=== PATIENT | female | born 1935 | race Caucasian/White ===

== ENCOUNTER 2017-05-11 19:09 | Inpatient (IN) | payer MEDICARE ==
[~2017-05-11] VITALS: Ht 157.5 cm; Wt 57.8 kg
[2017-05-11 20:02] LABS: BASO # 0.1 x10^3/uL (0.0-0.2); BASO % 1 % (0-3); EOS # 0.2 x10^3/uL (0.0-0.7); EOS % 3 % (0-3); HEMATOCRIT 30.7 % (36.0-47.0); HEMOGLOBIN 9.7 g/dL (12.0-15.5); LYMPH # 1.9 x10^3/uL (1.0-4.8); LYMPH % 21 % (24-48); MEAN CORPUSCULAR HEMOGLOBIN 22 pg (25-35); MEAN CORPUSCULAR HGB CONC 32 g/dL (31-37); MEAN CORPUSCULAR VOLUME 70 fL (79-100); MONO % 11 % (0-9); NEUT # 5.6 x10^3uL (1.8-7.7); NEUT % 63 % (31-73); PLATELET COUNT 556 x10^3/uL (140-400); RED BLOOD COUNT 4.36 x10^6/uL (3.50-5.40); RED CELL DISTRIBUTION WIDTH 17.9 % (11.5-14.5); WHITE BLOOD COUNT 8.8 x10^3/uL (4.0-11.0)
[2017-05-11 20:09] LABS: BILIRUBIN,URINE NEG (NEG); CLARITY,URINE CLEAR; COLOR,URINE YELLOW; GLUCOSE,URINE NEG (NEG)
[2017-05-11 20:10] LABS: BACTERIA,URINE 0 /HPF (0-FEW); NITRITE,URINE NEG (NEG); RBC,URINE 0 /HPF (0-2); UROBILINOGEN,URINE 0.2 mg/dL (0.2 mg/dL)
[2017-05-11 20:16] LABS: ALBUMIN 3.2 g/dL (3.4-5.0); ALBUMIN/GLOBULIN RATIO 0.8 (1.0-1.7); CREATININE 0.6 mg/dL (0.6-1.0); GFR 96.2; MAGNESIUM 1.9 mg/dL (1.8-2.4); POTASSIUM 3.7 mmol/L (3.5-5.1); TOTAL BILIRUBIN 0.3 mg/dL (0.2-1.0)
[2017-05-11 20:33] LABS: ANISOCYTOSIS SLIGHT; HYPOCHROMIA MOD; MICROCYTOSIS MOD; OVALOCYTES PRESENT; PLT ESTIMATE INCREASED (ADEQUATE); POLYCHROMASIA PRESENT
--- NOTE | 2017-05-11 20:33 | EKG ---
[address] [address] Test Date: 2017-05-11 Test Time: 19:45:30 Pat Name: LUIS MANUEL PICKENS Department: Room: Gender: F Inside Sales Advisor: : [id number] Requested By: TERRY HOLLIDAY Order Number: [id number] Reading MD: Troy Latham Measurements Intervals Meredith Rate: 92 P: 0 CA: 164 QRS: -72 QRSD: 80 T: 35 QT: 332 QTc: 415 Interpretive Statements SINUS RHYTHM ABNORMAL LEFT AXIS DEVIATION R-S TRANSITION ZONE IN V LEADS DISPLACED TO THE LEFT Electronically Signed On 06-07-2017 16:33:27 CDT by Troy Latham
[2017-05-11 20:34] LABS: SCHISTOCYTES OCC
[2017-05-11] MEDS ORDERED: METHYL SALICYLATE/MENTHOL TOPICAL OINTMENT 29GM TUBE. TP PRN (22:30)
[2017-05-11] MEDS ORDERED: MAG HYDROX/AL HYDROX/SIMETH 30 ML ORAL.SUSP PO PRN (22:30)
[2017-05-11] MEDS ORDERED: MAGNESIUM HYDROXIDE 2,400 MG/30 ML ORAL.SUSP. PO PRN (22:30)
[2017-05-11] MEDS ORDERED: LEVO50TA5 PO (22:43)
[2017-05-11] MEDS ORDERED: DOCU100C28 PO (22:43)
[2017-05-11] MEDS ORDERED: MULT-114 PO (22:43)
[2017-05-11] MEDS ORDERED: SERT50TA PO (22:43)
[2017-05-11] MEDS ORDERED: RISP1TAB3 PO (22:43)
[2017-05-11] MEDS ORDERED: LEVO75TA5 PO (22:43)
[2017-05-11 23:11] VITALS: BP 132/81
--- NOTE | 2017-05-11 23:45 | ED.ADGEN ---
Adult General HPI HPI Patient is an 82-year-old woman, history of colostomy, hypertension, dementia, who presents to the emergency department for medical screening examination for clearance to the geriatric psychiatric unit. Per report of nursing facility, patient has been exhibiting self harming type behaviors, "twisting her gown around her neck", and has been combative. At this time she is at her baseline mental status per report. Is unable to state where she is, but knows her name, and is cooperative with examination. She is denying all complaints, states that she is hungry. Review of Systems Review of Systems Constitutional: Denies fever or chills [] Eyes: Denies change in visual acuity, redness, or eye pain [] HENT: Denies nasal congestion or sore throat [] Respiratory: Denies cough or shortness of breath [] Cardiovascular: No additional information not addressed in HPI [] GI: Denies abdominal pain, nausea, vomiting, bloody stools or diarrhea [] : Denies dysuria or hematuria [] Musculoskeletal: Denies back pain or joint pain [] Integument: Denies rash or skin lesions [] Neurologic: Denies headache, focal weakness or sensory changes [] Endocrine: Denies polyuria or polydipsia [] Patient is denying all complaints, limited historian secondary to dementia at baseline. Physical Exam Physical Exam Constitutional: Well developed, well nourished, no acute distress, non-toxic appearance. [] HENT: Normocephalic, atraumatic, bilateral external ears normal, oropharynx moist, no oral exudates, nose normal. [] Eyes: PERRLA, EOMI, conjunctiva normal, no discharge. [] Neck: Normal range of motion, no tenderness, supple, no stridor. [] Cardiovascular:Heart rate regular rhythm, no murmur , S1, S2, no rubs or gallops. [] Lungs & Thorax: Bilateral breath sounds clear to auscultation, no wheezing, rhonchi, rales. No chest wall crepitus or tenderness. [] Abdomen: Bowel sounds normal, soft, no tenderness, patient with a colostomy in place in the left lower abdomen, with brown stool in colostomy bag, no masses, no pulsatile masses. [] Skin: Warm, dry, no erythema, no rash. [] Back: No tenderness, no CVA tenderness. [] Extremities: No tenderness, no cyanosis, no clubbing, ROM intact, no edema. [] Neurologic: Alert and oriented X 1, normal motor function, normal sensory function, no focal deficits noted. [] Psychologic: Affect normal, judgement normal, mood normal. [] Current Patient Data Lab Results Laboratory Tests Test 05/11/17 19:40 White Blood Count 8.8 x10^3/uL (4.0-11.0) Red Blood Count 4.36 x10^6/uL (3.50-5.40) Hemoglobin 9.7 g/dL (12.0-15.5) L Hematocrit 30.7 % (36.0-47.0) L Mean Corpuscular Volume 70 fL (79-100) L Mean Corpuscular Hemoglobin 22 pg (25-35) L Mean Corpuscular Hemoglobin Concent 32 g/dL (31-37) Red Cell Distribution Width 17.9 % (11.5-14.5) H Platelet Count 556 x10^3/uL (140-400) H Neutrophils (%) (Auto) 63 % (31-73) Lymphocytes (%) (Auto) 21 % (24-48) L Monocytes (%) (Auto) 11 % (0-9) H Eosinophils (%) (Auto) 3 % (0-3) Basophils (%) (Auto) 1 % (0-3) Neutrophils # (Auto) 5.6 x10^3uL (1.8-7.7) Lymphocytes # (Auto) 1.9 x10^3/uL (1.0-4.8) Monocytes # (Auto) 1.0 x10^3/uL (0.0-1.1) Eosinophils # (Auto) 0.2 x10^3/uL (0.0-0.7) Basophils # (Auto) 0.1 x10^3/uL (0.0-0.2) Platelet Estimate Increased (ADEQUATE) Polychromasia Present Hypochromasia Mod Anisocytosis Slight Microcytosis Mod Ovalocytes Present Crenated Cell Present Schistocytes Occ Urine Collection Type U cath Urine Color Yellow Urine Clarity Clear Urine pH 6.0 Urine Specific [place] 1.020 Urine Protein Trace (NEG-TRACE) Urine Glucose (UA) Neg mg/dL (NEG) Urine Ketones (Stick) Neg mg/dL (NEG) Urine Blood Trace (NEG) Urine Nitrite Neg (NEG) Urine Bilirubin Neg (NEG) Urine Urobilinogen Dipstick 0.2 mg/dL (0.2 mg/dL) Urine Leukocyte Esterase Small (NEG) Urine RBC 0 /HPF (0-2) Urine WBC 11-20 /HPF (0-4) Urine Squamous Epithelial Cells None /LPF Urine Bacteria 0 /HPF (0-FEW) Urine Mucus Mod /LPF Sodium Level 137 mmol/L (136-145) Potassium Level 3.7 mmol/L (3.5-5.1) Chloride Level 100 mmol/L (98-107) Carbon Dioxide Level 29 mmol/L (21-32) Anion Gap 8 (6-14) Blood Urea Nitrogen 10 mg/dL (7-20) Creatinine 0.6 mg/dL (0.6-1.0) Estimated GFR (Cockcroft-Gault) 96.2 BUN/Creatinine Ratio 17 (6-20) Glucose Level 110 mg/dL (70-99) H Calcium Level 9.0 mg/dL (8.5-10.1) Magnesium Level 1.9 mg/dL (1.8-2.4) Total Bilirubin 0.3 mg/dL (0.2-1.0) Aspartate Amino Transferase (AST) 14 U/L (15-37) L Alanine Aminotransferase (ALT) 18 U/L (14-59) Alkaline Phosphatase 70 U/L (46-116) Total Protein 7.0 g/dL (6.4-8.2) Albumin 3.2 g/dL (3.4-5.0) L Albumin/Globulin Ratio 0.8 (1.0-1.7) L EKG EKG EC: Sinus rhythm, heart rate 92 beats minute, left axis deviation, QTC of 4:15, NV 164, QRS of 80, contour normality is noted in the inferior leads, no ST elevations or depressions, abnormal ECG, does not meet STEMI criteria. As interpreted by me. [] Radiology/Procedures Radiology/Procedures [] Course & Med Decision Making Course & Med Decision Making Pertinent Labs and Imaging studies reviewed. (See chart for details) Patient on one-to-one observation in the emergency department, taking by mouth without issue in the ED, medical clearance not reveal any evidence of acutely concerning findings. Patient has been accepted under the service of Dr. Lilly. Patient was transported to the geriatric psychiatric unit for additional evaluation without issue. Final Impression Final Impression [] Problems: Dragon Disclaimer Dragon Disclaimer This electronic medical record was generated, in whole or in part, using a voice recognition dictation system. Departure: Impression: Primary Impression: Psychiatric complaint Disposition: ADMITTED INPATIENT Admitting Physician: Other Condition: STABLE TERRY HOLLIDAY DO May 11, 2017 23:45
--- NOTE | 2017-05-12 04:20 | ACF ---
Admission Criteria Forms PSYCHIATRIC DISORDERS Clinical Indications for Inpatient Care (Place 'X' for any and all applicable criteria): Ongoing inpatient care may be needed for 1 or more of the following(1)(2)(3)(4)( 6)(7)(8): [X]I. Danger to self or others not manageable at lower level of care. [ ]II. Grave disability (eg, inability to perform self care necessary at lower level of care) [ ]III. Agitation or inappropriate behavior interfering with care for primary condition (eg, attempting to discontinue lines or drains prematurely, unable to cooperate with respiratory care) [ ]IV. Severe disability or disorder indicated by ALL of the following: [ ]a) Severe behavioral health disorder-related symptoms or condition indicated by 1 or more of the following: [ ]i) Severe problem with cognition, memory, judgment, or impulse control [ ]ii) Severe clinical manifestations (eg, hallucinations, delusions, other acute psychotic symptoms, iftikhar, extreme agitation or anxiety) [ ]b) Patient management at lower level of care is not feasible until acute intervention or modification is initiated. Extended stay beyond goal length of stay for the primary condition may be needed untilALLof the following are present(1)(2)(3)(4)7)21)(23): [ ]a) Danger to self or others is absent or manageable at lower level of care [ ]b) Behavior crisis management, including physical or chemical restraints, is required and is not available at a lower level of care. [ ]c) Behavioral symptoms (e.g., agitation, somnolence, inappropriate behavior) are present, and are not manageable at a lower level of care. [ ]d) Patient cannot understand follow-up treatment and crisis plan. [ ]e) Provider and supports are sufficiently available at lower level of care. [ ]f) Patient can participate (e.g., verify absence of plan for harm) and is in needed of monitoring. The original [facility] [place] content created by [facility] [employer] has been revised. The portions of the content which have been revised are identified through the use of italic text, and [facility] [employer] has neither reviewed nor approved the modified material. All other unmodified content is copyright [facility] [employer] [facility]. Please see references footnoted in the original [facility] edition 2015 Admission Criteria Met?: Yes CHAVA PRESCOTT May 12, 2017 04:20
[2017-05-12 05:47] VITALS: BP 116/70
[2017-05-12] MEDS ORDERED: DOCUSATE SODIUM 100 MG CAPSULE PO PRN (07:45)
[2017-05-12] MEDS: MULTIVITAMIN with MINERAL TABLET. PO SCH (08:52)
[2017-05-12] MEDS: LEVOTHYROXINE 75 MCG TABLET PO SCH (08:52)
[2017-05-12] MEDS: risperiDONE 1 MG TABLET. PO SCH (08:52)
[2017-05-12] MEDS: SERTRALINE 50 MG TABLET. PO SCH (08:53)
[2017-05-12 14:12] LABS: THYROID STIM HORMONE (TSH) 2.225 uIU/mL (0.358-3.740)
[2017-05-12 16:02] VITALS: BP 122/76
[2017-05-12] MEDS: FERROUS SULFATE 325 MG TABLET PO SCH (17:01)
[2017-05-12 23:07] LABS: THYROXINE 7.9 ug/dL (4.5-12.0)
[2017-05-13] MEDS: ACETAMINOPHEN 325 MG TABLET PO PRN (02:55)
[2017-05-13] MEDS: LEVOTHYROXINE 75 MCG TABLET PO SCH (05:42)
[2017-05-13 05:59] VITALS: BP 153/84
[2017-05-13] MEDS ORDERED: LEVOTHYROXINE 50 MCG TABLET PO SCH (06:00)
[2017-05-13] MEDS ORDERED: LEVOTHYROXINE 75 MCG TABLET PO SCH (06:00)
[2017-05-13] MEDS: risperiDONE 1 MG TABLET. PO SCH (07:59)
[2017-05-13] MEDS: SERTRALINE 50 MG TABLET. PO SCH (07:59)
[2017-05-13] MEDS: MULTIVITAMIN with MINERAL TABLET. PO SCH (07:59)
[2017-05-13] MEDS: RIVASTIGMINE 4.6MG PATCH. TD SCH (12:30)
[2017-05-13] MEDS: FERROUS SULFATE 325 MG TABLET PO SCH ×2 (12:30→17:09)
--- NOTE | 2017-05-13 13:06 | PDOC ---
Exam Sonny Demential Exam: Sonny Note: Please also refer to the separate dictated note~for this date of service dictated separately.~Patient seen individually. Discussed the patient with Nursing staff reviewed the chart.~Reviewed interim history and current functioning. Reviewed vital signs,~Labs/ Radiology~and current medications noted below. Continue current treatment with the changes noted in the dictated addendum note Assessment: Vital Signs: Vital Signs Date Time Temp Pulse Resp B/P (MAP) Pulse Ox O2 Delivery O2 Flow Rate FiO2 05/13/17 05:59 97.7 97 18 153/84 (107) 97 05/12/17 05:47 Room Air I&O Intake and Output 05/13/17 07:00 Intake Total 600 ml Balance 600 ml Intake Oral 600 ml Labs: Laboratory Tests Test 05/12/17 17:25 Ferritin 29 ng/mL (8-252) Current Medications: Meds: Current Medications Acetaminophen (Tylenol) 650 mg PRN Q6HRS PRN PO PAIN / TEMP Last administered on 05/13/17 02:55; Start 05/11/17 at 22:30 Multi-Ingredient Ointment (Analgesic [place]) 1 claudia PRN QID PRN TP MUSCLE PAIN; Start 05/11/17 at 22:30 Al Hydroxide/Mg Hydroxide (Mylanta Plus Xs) 15 ml PRN AFTMEALHC PRN PO DYSPEPSIA; Start 05/11/17 at 22:30 Magnesium Hydroxide (Milk Of Magnesia) 2,400 mg PRN QHS PRN PO CONSTIPATION; Start 05/11/17 at 22:30 Sertraline HCl (Zoloft) 50 mg DAILY PO Last administered on 05/13/17 07:59; Start 05/12/17 at 09:00 Docusate Sodium (Colace) 100 mg PRN Q12HR PRN PO CONSTIPATION; Start 05/12/17 at 07:45 Levothyroxine Sodium (Synthroid) 50 mcg DAILY06 PO ; Start 05/13/17 at 06:00; Stop 05/13/17 at 06:00; Status DC Levothyroxine Sodium (Synthroid) 75 mcg DAILY06 PO ; Start 05/13/17 at 06:00; Stop 05/13/17 at 06:00; Status DC Risperidone (RisperDAL) 1 mg DAILY PO Last administered on 7/1/17at 07:59; Start 05/12/17 at 09:00 Multivitamins/ Calcium (Thera-M Plus) 1 tab DAILY PO Last administered on 07:59; Start 05/12/17 at 09:00 Levothyroxine Sodium (Synthroid) 75 mcg DAILY06 PO Last administered on 05:42; Start 05/12/17 at 08:00 Ferrous Sulfate (Feosol) 325 mg BIDACLD PO Last administered on 05/13/17 12:30 ; Start 05/12/17 at 16:30 Rivastigmine (Exelon) 1 patch DAILY TD Last administered on 05/13/17 12:30; Start 05/13/17 at 11:00 Mirtazapine (Remeron) 7.5 mg QHS PO ; Start 05/13/17 at 21:00 Active Scripts Active Reported Levothyroxine Sodium 75 Mcg Tablet 75 Mcg PO DAILYAC Levothyroxine Sodium 50 Mcg Tablet 50 Mcg PO DAILYAC Zoloft (Sertraline Hcl) 50 Mg Tablet 50 Mg PO DAILY Risperidone 1 Mg Tablet 1 Mg PO DAILY Multivitamins With Minerals (Multivitamin With Minerals) 1 Each Tablet 1 Each PO DAILY Docusate Sodium 100 Mg Capsule 100 Mg PO PRN Q12HR Diagnosis: Problems: (1) Anxiety disorder (2) Impulse control disorder (3) Dementia, vascular, with depression (4) Dementia, vascular, with delusions (5) Dementia in Alzheimer's disease with depression (6) Dementia in Alzheimer's disease with delusions ALIN EWIGN MD May 13, 2017 13:06
[2017-05-13 16:22] VITALS: BP 114/84
[2017-05-13] MEDS: PRENATAL MULTIVITAMIN TABLET. PO SCH (17:09)
[2017-05-13] MEDS: CHOLECALCIFEROL (VITAMIN D3) 50,000 UNIT CAPSULE PO SCH (17:10)
[2017-05-13] MEDS: MIRTAZAPINE 7.5 MG TABLET. PO SCH (21:05)
[2017-05-14] MEDS: LEVOTHYROXINE 75 MCG TABLET PO SCH (05:46)
[2017-05-14 06:21] VITALS: BP 156/96
[2017-05-14] MEDS: SERTRALINE 50 MG TABLET. PO SCH (07:54)
[2017-05-14] MEDS: RIVASTIGMINE 4.6MG PATCH. TD SCH (07:54)
[2017-05-14] MEDS: MULTIVITAMIN with MINERAL TABLET. PO SCH (07:54)
[2017-05-14] MEDS: risperiDONE 1 MG TABLET. PO SCH (07:54)
[2017-05-14] MEDS: FERROUS SULFATE 325 MG TABLET PO SCH ×2 (11:50→17:26)
[2017-05-14 15:59] VITALS: BP 109/73
[2017-05-14] MEDS: PRENATAL MULTIVITAMIN TABLET. PO SCH (17:26)
[2017-05-14] MEDS: MIRTAZAPINE 7.5 MG TABLET. PO SCH (21:05)
--- NOTE | 2017-05-14 21:18 | PDOC ---
Exam Sonny Demential Exam: Osnny Note: Please also refer to the separate dictated note~for this date of service dictated separately.~Patient seen individually. Discussed the patient with Nursing staff reviewed the chart.~Reviewed interim history and current functioning. Reviewed vital signs,~Labs/ Radiology~and current medications noted below. Continue current treatment with the changes noted in the dictated addendum note Assessment: Vital Signs: Vital Signs Date Time Temp Pulse Resp B/P (MAP) Pulse Ox O2 Delivery O2 Flow Rate FiO2 05/14/17 15:59 98.4 108 20 109/73 (85) 96 05/12/17 05:47 Room Air I&O Intake and Output 05/14/17 07:00 Intake Total 840 ml Balance 840 ml Intake Oral 840 ml # Bowel Movements 1 Current Medications: Meds: Current Medications Acetaminophen (Tylenol) 650 mg PRN Q6HRS PRN PO PAIN / TEMP Last administered on 05/13/17 02:55; Start 05/11/17 at 22:30 Multi-Ingredient Ointment (Analgesic [place]) 1 claudia PRN QID PRN TP MUSCLE PAIN; Start 05/11/17 at 22:30 Al Hydroxide/Mg Hydroxide (Mylanta Plus Xs) 15 ml PRN AFTMEALHC PRN PO DYSPEPSIA; Start 05/11/17 at 22:30 Magnesium Hydroxide (Milk Of Magnesia) 2,400 mg PRN QHS PRN PO CONSTIPATION; Start 05/11/17 at 22:30 Sertraline HCl (Zoloft) 50 mg DAILY PO Last administered on 05/14/17 07:54; Start 05/12/17 at 09:00 Docusate Sodium (Colace) 100 mg PRN Q12HR PRN PO CONSTIPATION; Start 05/12/17 at 07:45 Levothyroxine Sodium (Synthroid) 50 mcg DAILY06 PO ; Start 05/13/17 at 06:00; Stop 05/13/17 at 06:00; Status DC Levothyroxine Sodium (Synthroid) 75 mcg DAILY06 PO ; Start 05/13/17 at 06:00; Stop 05/13/17 at 06:00; Status DC Risperidone (RisperDAL) 1 mg DAILY PO Last administered on 05/14/17 07:54; Start 05/12/17 at 09:00 Multivitamins/ Calcium (Thera-M Plus) 1 tab DAILY PO Last administered on 07:54; Start 05/12/17 at 09:00 Levothyroxine Sodium (Synthroid) 75 mcg DAILY06 PO Last administered on 05:46; Start 05/12/17 at 08:00 Ferrous Sulfate (Feosol) 325 mg BIDACLD PO Last administered on 05/14/17 17:26 ; Start 05/12/17 at 16:30 Rivastigmine (Exelon) 1 patch DAILY TD Last administered on 05/14/17 07:54; Start 05/13/17 at 11:00 Mirtazapine (Remeron) 7.5 mg QHS PO Last administered on 05/14/17 21:05; Start 05/13/17 at 21:00 Vitamin D (Vitamin D3) 50,000 unit WEEKLY PO Last administered on 05/13/17 17: 10; Start 05/13/17 at 14:30 Prenat Multivit/ [place]/Iron/Folic Ac (Multivitamin ) 1 tab DAILYWSUP PO Last administered on 05/14/17 17:26; Start 05/13/17 at 17:00 Active Scripts Active Reported Levothyroxine Sodium 75 Mcg Tablet 75 Mcg PO DAILYAC Levothyroxine Sodium 50 Mcg Tablet 50 Mcg PO DAILYAC Zoloft (Sertraline Hcl) 50 Mg Tablet 50 Mg PO DAILY Risperidone 1 Mg Tablet 1 Mg PO DAILY Multivitamins With Minerals (Multivitamin With Minerals) 1 Each Tablet 1 Each PO DAILY Docusate Sodium 100 Mg Capsule 100 Mg PO PRN Q12HR Diagnosis: Problems: (1) Psychiatric complaint (2) Anxiety disorder (3) Impulse control disorder (4) Dementia, vascular, with depression (5) Dementia, vascular, with delusions (6) Dementia in Alzheimer's disease with depression (7) Dementia in Alzheimer's disease with delusions ALIN EWING MD May 14, 2017 21:17
[2017-05-15] MEDS: ACETAMINOPHEN 325 MG TABLET PO PRN (03:10)
[2017-05-15] MEDS: LEVOTHYROXINE 75 MCG TABLET PO SCH (05:19)
[2017-05-15 06:46] VITALS: BP 160/89
[2017-05-15] MEDS: SERTRALINE 50 MG TABLET. PO SCH (09:35)
[2017-05-15] MEDS: MULTIVITAMIN with MINERAL TABLET. PO SCH (09:35)
[2017-05-15] MEDS: risperiDONE 1 MG TABLET. PO SCH (09:35)
[2017-05-15] MEDS: RIVASTIGMINE 4.6MG PATCH. TD SCH (09:36)
[2017-05-15] MEDS: FERROUS SULFATE 325 MG TABLET PO SCH ×2 (12:56→17:11)
[2017-05-15 15:52] VITALS: BP 125/78
[2017-05-15] MEDS: PRENATAL MULTIVITAMIN TABLET. PO SCH (17:12)
[2017-05-15] MEDS: MIRTAZAPINE 15 MG TABLET PO SCH (19:58)
--- NOTE | 2017-05-15 20:50 | PDOC ---
Exam Sonny Demential Exam: Sonny Note: Please also refer to the separate dictated note~for this date of service dictated separately.~Patient seen individually. Discussed the patient with Nursing staff reviewed the chart.~Reviewed interim history and current functioning. Reviewed vital signs,~Labs/ Radiology~and current medications noted below. Continue current treatment with the changes noted in the dictated addendum note S/O: This is late entry for date of service 05/13/2017. This note covers elements not covered in my initial note of May 13. I reviewed information from Dr. Wilks who had covered for me over the past several days during my vacation. Reviewed with nursing staff. The patient remains confused and anxious. She had been on one-on-one status in the emergency room and at the facility because of her aggression, dangerous behaviors, but has been calm and compliant for the last several hours. She is restless, anxious, and distractible. Review of Systems: No CV, , Pulmonary, Eye, ENT system symptoms on review. Reliability poor. MSE: Oriented to herself. Insight and judgment, recent and remote memory, attention and concentration, and fund of knowledge are poor consistent with her diagnosis. Plan: Continue Zoloft 50 mg a day. She is sleeping poorly. We will start Remeron 7.5 mg h.s., Exelon patch 4.6 mg a day adjust further as clinically indicated. Assessment: Vital Signs: Vital Signs Date Time Temp Pulse Resp B/P (MAP) Pulse Ox O2 Delivery O2 Flow Rate FiO2 05/15/17 15:52 98.2 94 18 125/78 (94) 98 Room Air I&O Intake and Output 05/15/17 07:00 Intake Total 880 ml Balance 880 ml Intake Oral 880 ml # Voids 1 # Bowel Movements 1 Current Medications: Meds: Current Medications Acetaminophen (Tylenol) 650 mg PRN Q6HRS PRN PO PAIN / TEMP Last administered on 05/15/17t 03:10; Start 05/11/17 at 22:30 Multi-Ingredient Ointment (Analgesic [place]) 1 claudia PRN QID PRN TP MUSCLE PAIN; Start 05/11/17 at 22:30 Al Hydroxide/Mg Hydroxide (Mylanta Plus Xs) 15 ml PRN AFTMEALHC PRN PO DYSPEPSIA; Start 05/11/17 at 22:30 Magnesium Hydroxide (Milk Of Magnesia) 2,400 mg PRN QHS PRN PO CONSTIPATION; Start 05/11/17 at 22:30 Sertraline HCl (Zoloft) 50 mg DAILY PO Last administered on 05/15/17 09:35; Start 05/12/17 at 09:00 Docusate Sodium (Colace) 100 mg PRN Q12HR PRN PO CONSTIPATION; Start 05/12/17 at 07:45 Levothyroxine Sodium (Synthroid) 50 mcg DAILY06 PO ; Start 05/13/17 at 06:00; Stop 05/13/17 at 06:00; Status DC Levothyroxine Sodium (Synthroid) 75 mcg DAILY06 PO ; Start 05/13/17 at 06:00; Stop 05/13/17 at 06:00; Status DC Risperidone (RisperDAL) 1 mg DAILY PO Last administered on 05/15/17 09:35; Start 05/12/17 at 09:00 Multivitamins/ Calcium (Thera-M Plus) 1 tab DAILY PO Last administered on 09:35; Start 05/12/17 at 09:00 Levothyroxine Sodium (Synthroid) 75 mcg DAILY06 PO Last administered on 05:19; Start 05/12/17 at 08:00 Ferrous Sulfate (Feosol) 325 mg BIDACLD PO Last administered on 05/15/17 17:11 ; Start 05/12/17 at 16:30 Rivastigmine (Exelon) 1 patch DAILY TD Last administered on 05/15/17 09:36; Start 05/13/17 at 11:00 Mirtazapine (Remeron) 7.5 mg QHS PO Last administered on 05/14/17 21:05; Start 05/13/17 at 21:00; Stop 05/15/17 at 18:38; Status DC Vitamin D (Vitamin D3) 50,000 unit WEEKLY PO Last administered on 05/13/17 17: 10; Start 05/13/17 at 14:30 Prenat Multivit/ [employer] Teacher/Iron/Folic Ac (Multivitamin ) 1 tab DAILYWSUP PO Last administered on 05/15/17 17:12; Start 05/13/17 at 17:00 Mirtazapine (Remeron) 15 mg QHS PO Last administered on 05/15/17t 19:58; Start 05/15/17 at 21:00 Trazodone HCl (Desyrel) 50 mg PRN QHS PRN PO INSOMNIA, MARCH REPEAT X1; Start 05/15/17 at 18:45 Active Scripts Active Reported Levothyroxine Sodium 75 Mcg Tablet 75 Mcg PO DAILYAC Levothyroxine Sodium 50 Mcg Tablet 50 Mcg PO DAILYAC Zoloft (Sertraline Hcl) 50 Mg Tablet 50 Mg PO DAILY Risperidone 1 Mg Tablet 1 Mg PO DAILY Multivitamins With Minerals (Multivitamin With Minerals) 1 Each Tablet 1 Each PO DAILY Docusate Sodium 100 Mg Capsule 100 Mg PO PRN Q12HR ALIN EWING MD May 15, 2017 20:50
[2017-05-16] MEDS: traZODone 50 MG TABLET. PO PRN (00:20)
[2017-05-16] MEDS: LEVOTHYROXINE 75 MCG TABLET PO SCH (05:28)
[2017-05-16 06:03] VITALS: BP 124/69
[2017-05-16 07:57] LABS: BASO # 0.1 x10^3/uL (0.0-0.2); BASO % 1 % (0-3); EOS # 0.2 x10^3/uL (0.0-0.7); EOS % 4 % (0-3); HEMATOCRIT 25.8 % (36.0-47.0); HEMOGLOBIN 8.1 g/dL (12.0-15.5); LYMPH # 1.3 x10^3/uL (1.0-4.8); LYMPH % 22 % (24-48); MEAN CORPUSCULAR HEMOGLOBIN 23 pg (25-35); MEAN CORPUSCULAR HGB CONC 32 g/dL (31-37); MEAN CORPUSCULAR VOLUME 72 fL (79-100); MONO # 0.6 x10^3/uL (0.0-1.1); MONO % 10 % (0-9); NEUT # 3.8 x10^3uL (1.8-7.7); NEUT % 63 % (31-73); PLATELET COUNT 339 x10^3/uL (140-400); RED BLOOD COUNT 3.61 x10^6/uL (3.50-5.40); RED CELL DISTRIBUTION WIDTH 18.8 % (11.5-14.5)
[2017-05-16 08:10] LABS: ALBUMIN 2.8 g/dL (3.4-5.0); CALCIUM 8.6 mg/dL (8.5-10.1); CREATININE 0.6 mg/dL (0.6-1.0); GFR 96.2; MAGNESIUM 1.8 mg/dL (1.8-2.4); POTASSIUM 3.5 mmol/L (3.5-5.1); TOTAL BILIRUBIN 0.3 mg/dL (0.2-1.0); TOTAL PROTEIN 5.5 g/dL (6.4-8.2)
[2017-05-16] MEDS: RIVASTIGMINE 4.6MG PATCH. TD SCH (08:16)
[2017-05-16] MEDS: MULTIVITAMIN with MINERAL TABLET. PO SCH (08:16)
[2017-05-16] MEDS: FERROUS SULFATE 325 MG TABLET PO SCH ×2 (08:16→17:25)
[2017-05-16] MEDS: SERTRALINE 50 MG TABLET. PO SCH (08:17)
[2017-05-16] MEDS: risperiDONE 1 MG TABLET. PO SCH (08:17)
[2017-05-16 16:25] VITALS: BP 131/75
[2017-05-16] MEDS: PRENATAL MULTIVITAMIN TABLET. PO SCH (17:25)
[2017-05-16] MEDS: MIRTAZAPINE 15 MG TABLET PO SCH (19:15)
--- NOTE | 2017-05-16 20:10 | PDOC ---
Exam Sonny Demential Exam: Sonny Note: Please also refer to the separate dictated note~for this date of service dictated separately.~Patient seen individually. Discussed the patient with Nursing staff reviewed the chart.~Reviewed interim history and current functioning. Reviewed vital signs,~Labs/ Radiology~and current medications noted below. Continue current treatment with the changes noted in the dictated addendum note DATE OF SERVICE: 05/14/2017. PSYCHIATRIC PROGRESS NOTE This is a late entry for Date of Service 05/14/2017 and covers elements not covered in my initial note. Per nursing report the patient remains confused, would not leave her colostomy alone, and has been placed in an onesie to help with this. She is confused, anxious, restless. No CV, , pulmonary, eye, ENT systems symptoms, on review, reliability poor. She complained of feeling cold. MENTAL STATUS EXAM: Oriented to herself. Insight and judgment, recent and remote memory, attention and concentration, fund of knowledge poor consistent with her diagnosis mentioned in my initial note. LABS: Reviewed. PLAN: Continue current psychotropics mentioned in my initial note. Adjust further as clinically indicated. Assessment: Vital Signs: Vital Signs Date Time Temp Pulse Resp B/P (MAP) Pulse Ox O2 Delivery O2 Flow Rate FiO2 05/16/17 16:25 98.3 83 18 131/75 (93) 98 05/15/17 15:52 Room Air I&O Intake and Output 05/16/17 07:00 Intake Total 780 ml Balance 780 ml Intake Oral 780 ml # Voids 1 Labs: Laboratory Tests Test 05/16/17 07:19 White Blood Count 6.0 x10^3/uL (4.0-11.0) Red Blood Count 3.61 x10^6/uL (3.50-5.40) Hemoglobin 8.1 g/dL (12.0-15.5) L Hematocrit 25.8 % (36.0-47.0) L Mean Corpuscular Volume 72 fL (79-100) L Mean Corpuscular Hemoglobin 23 pg (25-35) L Mean Corpuscular Hemoglobin Concent 32 g/dL (31-37) Red Cell Distribution Width 18.8 % (11.5-14.5) H Platelet Count 339 x10^3/uL (140-400) Neutrophils (%) (Auto) 63 % (31-73) Lymphocytes (%) (Auto) 22 % (24-48) L Monocytes (%) (Auto) 10 % (0-9) H Eosinophils (%) (Auto) 4 % (0-3) H Basophils (%) (Auto) 1 % (0-3) Neutrophils # (Auto) 3.8 x10^3uL (1.8-7.7) Lymphocytes # (Auto) 1.3 x10^3/uL (1.0-4.8) Monocytes # (Auto) 0.6 x10^3/uL (0.0-1.1) Eosinophils # (Auto) 0.2 x10^3/uL (0.0-0.7) Basophils # (Auto) 0.1 x10^3/uL (0.0-0.2) Sodium Level 143 mmol/L (136-145) Potassium Level 3.5 mmol/L (3.5-5.1) Chloride Level 106 mmol/L (98-107) Carbon Dioxide Level 30 mmol/L (21-32) Anion Gap 7 (6-14) Blood Urea Nitrogen 8 mg/dL (7-20) Creatinine 0.6 mg/dL (0.6-1.0) Estimated GFR (Cockcroft-Gault) 96.2 BUN/Creatinine Ratio 13 (6-20) Glucose Level 99 mg/dL (70-99) Calcium Level 8.6 mg/dL (8.5-10.1) Magnesium Level 1.8 mg/dL (1.8-2.4) Total Bilirubin 0.3 mg/dL (0.2-1.0) Aspartate Amino Transferase (AST) 13 U/L (15-37) L Alanine Aminotransferase (ALT) 16 U/L (14-59) Alkaline Phosphatase 60 U/L (46-116) Total Protein 5.5 g/dL (6.4-8.2) L Albumin 2.8 g/dL (3.4-5.0) L Albumin/Globulin Ratio 1.0 (1.0-1.7) Current Medications: Meds: Current Medications Acetaminophen (Tylenol) 650 mg PRN Q6HRS PRN PO PAIN / TEMP Last administered on 05/15/17t 03:10; Start 05/11/17 at 22:30 Multi-Ingredient Ointment (Analgesic [place]) 1 claudia PRN QID PRN TP MUSCLE PAIN; Start 05/11/17 at 22:30 Al Hydroxide/Mg Hydroxide (Mylanta Plus Xs) 15 ml PRN AFTMEALHC PRN PO DYSPEPSIA; Start 05/11/17 at 22:30 Magnesium Hydroxide (Milk Of Magnesia) 2,400 mg PRN QHS PRN PO CONSTIPATION; Start 05/11/17 at 22:30 Sertraline HCl (Zoloft) 50 mg DAILY PO Last administered on 05/16/17 08:17; Start 05/12/17 at 09:00 Docusate Sodium (Colace) 100 mg PRN Q12HR PRN PO CONSTIPATION; Start 05/12/17 at 07:45 Levothyroxine Sodium (Synthroid) 50 mcg DAILY06 PO ; Start 05/13/17 at 06:00; Stop 05/13/17 at 06:00; Status DC Levothyroxine Sodium (Synthroid) 75 mcg DAILY06 PO ; Start 05/13/17 at 06:00; Stop 05/13/17 at 06:00; Status DC Risperidone (RisperDAL) 1 mg DAILY PO Last administered on 05/16/17 08:17; Start 05/12/17 at 09:00 Multivitamins/ Calcium (Thera-M Plus) 1 tab DAILY PO Last administered on 08:16; Start 05/12/17 at 09:00 Levothyroxine Sodium (Synthroid) 75 mcg DAILY06 PO Last administered on 05:28; Start 05/12/17 at 08:00 Ferrous Sulfate (Feosol) 325 mg BIDACLD PO Last administered on 05/16/17 17:25 ; Start 05/12/17 at 16:30 Rivastigmine (Exelon) 1 patch DAILY TD Last administered on 05/16/17 08:16; Start 05/13/17 at 11:00 Mirtazapine (Remeron) 7.5 mg QHS PO Last administered on 05/14/17 21:05; Start 05/13/17 at 21:00; Stop 05/15/17 at 18:38; Status DC Vitamin D (Vitamin D3) 50,000 unit WEEKLY PO Last administered on 05/13/17 17: 10; Start 05/13/17 at 14:30 Prenat Multivit/ [place]/Iron/Folic Ac (Multivitamin ) 1 tab DAILYWSUP PO Last administered on 05/16/17 17:25; Start 05/13/17 at 17:00 Mirtazapine (Remeron) 15 mg QHS PO Last administered on 05/16/17 19:15; Start 05/15/17 at 21:00 Trazodone HCl (Desyrel) 50 mg PRN QHS PRN PO INSOMNIA, MAY REPEAT X1 Last administered on 05/16/17 00:20; Start 05/15/17 at 18:45 Active Scripts Active Reported Levothyroxine Sodium 75 Mcg Tablet 75 Mcg PO DAILYAC Levothyroxine Sodium 50 Mcg Tablet 50 Mcg PO DAILYAC Zoloft (Sertraline Hcl) 50 Mg Tablet 50 Mg PO DAILY Risperidone 1 Mg Tablet 1 Mg PO DAILY Multivitamins With Minerals (Multivitamin With Minerals) 1 Each Tablet 1 Each PO DAILY Docusate Sodium 100 Mg Capsule 100 Mg PO PRN Q12HR ALIN EWING MD May 16, 2017 20:10
--- NOTE | 2017-05-16 20:45 | PDOC ---
Exam Sonny Demential Exam: Sonny Note: Please also refer to the separate dictated note~for this date of service dictated separately.~Patient seen individually. Discussed the patient with Nursing staff reviewed the chart.~Reviewed interim history and current functioning. Reviewed vital signs,~Labs/ Radiology~and current medications noted below. Continue current treatment with the changes noted in the dictated addendum note Assessment: Vital Signs: Vital Signs Date Time Temp Pulse Resp B/P (MAP) Pulse Ox O2 Delivery O2 Flow Rate FiO2 05/16/17 16:25 98.3 83 18 131/75 (93) 98 05/15/17 15:52 Room Air I&O Intake and Output 05/16/17 07:00 Intake Total 780 ml Balance 780 ml Intake Oral 780 ml # Voids 1 Labs: Laboratory Tests Test 05/16/17 07:19 White Blood Count 6.0 x10^3/uL (4.0-11.0) Red Blood Count 3.61 x10^6/uL (3.50-5.40) Hemoglobin 8.1 g/dL (12.0-15.5) L Hematocrit 25.8 % (36.0-47.0) L Mean Corpuscular Volume 72 fL (79-100) L Mean Corpuscular Hemoglobin 23 pg (25-35) L Mean Corpuscular Hemoglobin Concent 32 g/dL (31-37) Red Cell Distribution Width 18.8 % (11.5-14.5) H Platelet Count 339 x10^3/uL (140-400) Neutrophils (%) (Auto) 63 % (31-73) Lymphocytes (%) (Auto) 22 % (24-48) L Monocytes (%) (Auto) 10 % (0-9) H Eosinophils (%) (Auto) 4 % (0-3) H Basophils (%) (Auto) 1 % (0-3) Neutrophils # (Auto) 3.8 x10^3uL (1.8-7.7) Lymphocytes # (Auto) 1.3 x10^3/uL (1.0-4.8) Monocytes # (Auto) 0.6 x10^3/uL (0.0-1.1) Eosinophils # (Auto) 0.2 x10^3/uL (0.0-0.7) Basophils # (Auto) 0.1 x10^3/uL (0.0-0.2) Sodium Level 143 mmol/L (136-145) Potassium Level 3.5 mmol/L (3.5-5.1) Chloride Level 106 mmol/L (98-107) Carbon Dioxide Level 30 mmol/L (21-32) Anion Gap 7 (6-14) Blood Urea Nitrogen 8 mg/dL (7-20) Creatinine 0.6 mg/dL (0.6-1.0) Estimated GFR (Cockcroft-Gault) 96.2 BUN/Creatinine Ratio 13 (6-20) Glucose Level 99 mg/dL (70-99) Calcium Level 8.6 mg/dL (8.5-10.1) Magnesium Level 1.8 mg/dL (1.8-2.4) Total Bilirubin 0.3 mg/dL (0.2-1.0) Aspartate Amino Transferase (AST) 13 U/L (15-37) L Alanine Aminotransferase (ALT) 16 U/L (14-59) Alkaline Phosphatase 60 U/L (46-116) Total Protein 5.5 g/dL (6.4-8.2) L Albumin 2.8 g/dL (3.4-5.0) L Albumin/Globulin Ratio 1.0 (1.0-1.7) Current Medications: Meds: Current Medications Acetaminophen (Tylenol) 650 mg PRN Q6HRS PRN PO PAIN / TEMP Last administered on 05/15/17 03:10; Start 05/11/17 at 22:30 Multi-Ingredient Ointment (Analgesic [place]) 1 claudia PRN QID PRN TP MUSCLE PAIN; Start 05/11/17 at 22:30 Al Hydroxide/Mg Hydroxide (Mylanta Plus Xs) 15 ml PRN AFTMEALHC PRN PO DYSPEPSIA; Start 05/11/17 at 22:30 Magnesium Hydroxide (Milk Of Magnesia) 2,400 mg PRN QHS PRN PO CONSTIPATION; Start 05/11/17 at 22:30 Sertraline HCl (Zoloft) 50 mg DAILY PO Last administered on 05/16/17 08:17; Start 05/12/17 at 09:00 Docusate Sodium (Colace) 100 mg PRN Q12HR PRN PO CONSTIPATION; Start 05/12/17 at 07:45 Levothyroxine Sodium (Synthroid) 50 mcg DAILY06 PO ; Start 05/13/17 at 06:00; Stop 05/13/17 at 06:00; Status DC Levothyroxine Sodium (Synthroid) 75 mcg DAILY06 PO ; Start 05/13/17 at 06:00; Stop 05/13/17 at 06:00; Status DC Risperidone (RisperDAL) 1 mg DAILY PO Last administered on 05/16/17 08:17; Start 05/12/17 at 09:00 Multivitamins/ Calcium (Thera-M Plus) 1 tab DAILY PO Last administered on 08:16; Start 05/12/17 at 09:00 Levothyroxine Sodium (Synthroid) 75 mcg DAILY06 PO Last administered on 05:28; Start 05/12/17 at 08:00 Ferrous Sulfate (Feosol) 325 mg BIDACLD PO Last administered on 05/16/17 17:25 ; Start 05/12/17 at 16:30 Rivastigmine (Exelon) 1 patch DAILY TD Last administered on 05/16/17 08:16; Start 05/13/17 at 11:00 Mirtazapine (Remeron) 7.5 mg QHS PO Last administered on 05/14/17 21:05; Start 05/13/17 at 21:00; Stop 05/15/17 at 18:38; Status DC Vitamin D (Vitamin D3) 50,000 unit WEEKLY PO Last administered on 05/13/17 17: 10; Start 05/13/17 at 14:30 Prenat Multivit/ [place]/Iron/Folic Ac (Multivitamin ) 1 tab DAILYWSUP PO Last administered on 05/16/17 17:25; Start 05/13/17 at 17:00 Mirtazapine (Remeron) 15 mg QHS PO Last administered on 05/16/17 19:15; Start 05/15/17 at 21:00 Trazodone HCl (Desyrel) 50 mg PRN QHS PRN PO INSOMNIA, MAY REPEAT X1 Last administered on 05/16/17 00:20; Start 05/15/17 at 18:45 Active Scripts Active Reported Levothyroxine Sodium 75 Mcg Tablet 75 Mcg PO DAILYAC Levothyroxine Sodium 50 Mcg Tablet 50 Mcg PO DAILYAC Zoloft (Sertraline Hcl) 50 Mg Tablet 50 Mg PO DAILY Risperidone 1 Mg Tablet 1 Mg PO DAILY Multivitamins With Minerals (Multivitamin With Minerals) 1 Each Tablet 1 Each PO DAILY Docusate Sodium 100 Mg Capsule 100 Mg PO PRN Q12HR Diagnosis: Problems: (1) Anxiety disorder (2) Impulse control disorder (3) Dementia, vascular, with depression (4) Dementia, vascular, with delusions (5) Dementia in Alzheimer's disease with depression (6) Dementia in Alzheimer's disease with delusions ALIN EWING MD May 16, 2017 20:45
[2017-05-17] MEDS: LEVOTHYROXINE 75 MCG TABLET PO SCH (05:02)
[2017-05-17] MEDS: ACETAMINOPHEN 325 MG TABLET PO PRN (05:33)
[2017-05-17 06:00] VITALS: BP 149/85
[2017-05-17] MEDS: MULTIVITAMIN with MINERAL TABLET. PO SCH (09:04)
[2017-05-17] MEDS: SERTRALINE 50 MG TABLET. PO SCH (09:04)
[2017-05-17] MEDS: RIVASTIGMINE 4.6MG PATCH. TD SCH (09:05)
[2017-05-17] MEDS: risperiDONE 1 MG TABLET. PO SCH (09:05)
[2017-05-17] MEDS: FERROUS SULFATE 325 MG TABLET PO SCH ×2 (12:03→16:30)
[2017-05-17 13:17] LABS: FECAL OB PT NEGATIVE (NEG)
[2017-05-17 16:11] VITALS: BP 113/74
[2017-05-17] MEDS: PRENATAL MULTIVITAMIN TABLET. PO SCH (17:00)
[2017-05-17] MEDS: DOCUSATE SODIUM 100 MG CAPSULE PO SCH (19:37)
[2017-05-17] MEDS: MIRTAZAPINE 15 MG TABLET PO SCH (19:37)
--- NOTE | 2017-05-17 19:51 | PDOC ---
Exam Sonny Demential Exam: Sonny Note: Please also refer to the separate dictated note~for this date of service dictated separately.~Patient seen individually. Discussed the patient with Nursing staff reviewed the chart.~Reviewed interim history and current functioning. Reviewed vital signs,~Labs/ Radiology~and current medications noted below. Continue current treatment with the changes noted in the dictated addendum note Assessment: Vital Signs: Vital Signs Date Time Temp Pulse Resp B/P (MAP) Pulse Ox O2 Delivery O2 Flow Rate FiO2 05/17/17 16:11 98.7 90 20 113/74 (87) 98 05/15/17 15:52 Room Air I&O Intake and Output 05/17/17 07:00 Intake Total 1080 ml Balance 1080 ml Intake Oral 1080 ml Labs: Laboratory Tests Test 05/17/17 12:55 Stool Occult Blood Negative (NEG) Current Medications: Meds: Current Medications Acetaminophen (Tylenol) 650 mg PRN Q6HRS PRN PO PAIN / TEMP Last administered on 05/17/17 05:33; Start 05/11/17 at 22:30 Multi-Ingredient Ointment (Analgesic [place]) 1 claudia PRN QID PRN TP MUSCLE PAIN; Start 05/11/17 at 22:30 Al Hydroxide/Mg Hydroxide (Mylanta Plus Xs) 15 ml PRN AFTMEALHC PRN PO DYSPEPSIA; Start 05/11/17 at 22:30 Magnesium Hydroxide (Milk Of Magnesia) 2,400 mg PRN QHS PRN PO CONSTIPATION Last administered on 05/17/17 09:06; Start 05/11/17 at 22:30 Sertraline HCl (Zoloft) 50 mg DAILY PO Last administered on 05/17/17 09:04; Start 05/12/17 at 09:00 Docusate Sodium (Colace) 100 mg PRN Q12HR PRN PO CONSTIPATION; Start 05/12/17 at 07:45; Stop 05/17/17 at 18:38; Status DC Levothyroxine Sodium (Synthroid) 50 mcg DAILY06 PO ; Start 05/13/17 at 06:00; Stop 05/13/17 at 06:00; Status DC Levothyroxine Sodium (Synthroid) 75 mcg DAILY06 PO ; Start 05/13/17 at 06:00; Stop 05/13/17 at 06:00; Status DC Risperidone (RisperDAL) 1 mg DAILY PO Last administered on 05/17/17 09:05; Start 05/12/17 at 09:00 Multivitamins/ Calcium (Thera-M Plus) 1 tab DAILY PO Last administered on 09:04; Start 05/12/17 at 09:00 Levothyroxine Sodium (Synthroid) 75 mcg DAILY06 PO Last administered on 05:02; Start 05/12/17 at 08:00 Ferrous Sulfate (Feosol) 325 mg BIDACLD PO Last administered on 05/17/17 16:30 ; Start 05/12/17 at 16:30 Rivastigmine (Exelon) 1 patch DAILY TD Last administered on 05/17/17 09:05; Start 05/13/17 at 11:00 Mirtazapine (Remeron) 7.5 mg QHS PO Last administered on 05/14/17 21:05; Start 05/13/17 at 21:00; Stop 05/15/17 at 18:38; Status DC Vitamin D (Vitamin D3) 50,000 unit WEEKLY PO Last administered on 05/13/17 17: 10; Start 05/13/17 at 14:30 Prenat Multivit/ [place]/Iron/Folic Ac (Multivitamin ) 1 tab DAILYWSUP PO Last administered on 05/17/17 17:00; Start 05/13/17 at 17:00 Mirtazapine (Remeron) 15 mg QHS PO Last administered on 05/17/17 19:37; Start 05/15/17 at 21:00 Trazodone HCl (Desyrel) 50 mg PRN QHS PRN PO INSOMNIA, MAY REPEAT X1 Last administered on 05/16/17 00:20; Start 05/15/17 at 18:45 Docusate Sodium (Colace) 100 mg BID PO Last administered on 05/17/17 19:37; Start 05/17/17 at 21:00 Active Scripts Active Reported Levothyroxine Sodium 75 Mcg Tablet 75 Mcg PO DAILYAC Levothyroxine Sodium 50 Mcg Tablet 50 Mcg PO DAILYAC Zoloft (Sertraline Hcl) 50 Mg Tablet 50 Mg PO DAILY Risperidone 1 Mg Tablet 1 Mg PO DAILY Multivitamins With Minerals (Multivitamin With Minerals) 1 Each Tablet 1 Each PO DAILY Docusate Sodium 100 Mg Capsule 100 Mg PO PRN Q12HR Diagnosis: Problems: (1) Anxiety disorder (2) Impulse control disorder (3) Dementia, vascular, with depression (4) Dementia, vascular, with delusions (5) Dementia in Alzheimer's disease with depression (6) Dementia in Alzheimer's disease with delusions ALIN EWING MD May 17, 2017 19:51
[2017-05-18] MEDS: LEVOTHYROXINE 75 MCG TABLET PO SCH (05:10)
[2017-05-18 06:08] VITALS: BP 123/80
--- NOTE | 2017-05-18 06:21 | EKG ---
[address] [address] Test Date: 2017-05-18 Test Time: 06:08:08 Pat Name: LUIS MANUEL PICKENS Department: Room: [address] [place] [address] Gender: F Clinical Informatics Physician: LIDIA : [id number] Requested By: GREG TADEO Order Number: [id number] Reading MD: Measurements Intervals [place] Rate: 76 P: 37 MN: 188 QRS: -20 QRSD: 78 T: 33 QT: 344 QTc: 391 Interpretive Statements SINUS RHYTHM LEFTWARD AXIS QRS(T) CONTOUR ABNORMALITY CONSIDER ANTEROSEPTAL MYOCARDIAL DAMAGE POSSIBLY ABNORMAL ECG RI6.01 Unconfirmed report No previous ECG available for comparison
[2017-05-18] MEDS: DOCUSATE SODIUM 100 MG CAPSULE PO SCH ×2 (08:12→19:30)
[2017-05-18] MEDS: SERTRALINE 50 MG TABLET. PO SCH (08:12)
[2017-05-18] MEDS: RIVASTIGMINE 4.6MG PATCH. TD SCH (08:13)
[2017-05-18] MEDS: risperiDONE 1 MG TABLET. PO SCH (08:13)
[2017-05-18] MEDS: MULTIVITAMIN with MINERAL TABLET. PO SCH (08:13)
[2017-05-18] MEDS: FERROUS SULFATE 325 MG TABLET PO SCH ×2 (08:13→16:50)
[2017-05-18 15:31] VITALS: BP 110/72
[2017-05-18] MEDS: PRENATAL MULTIVITAMIN TABLET. PO SCH (16:49)
[2017-05-18] MEDS: MIRTAZAPINE 15 MG TABLET PO SCH (19:30)
[2017-05-18] MEDS: traZODone 50 MG TABLET. PO PRN (19:30)
--- NOTE | 2017-05-18 20:12 | PDOC ---
Exam Sonny Demential Exam: Sonny Note: Please also refer to the separate dictated note~for this date of service dictated separately.~Patient seen individually. Discussed the patient with Nursing staff reviewed the chart.~Reviewed interim history and current functioning. Reviewed vital signs,~Labs/ Radiology~and current medications noted below. Continue current treatment with the changes noted in the dictated addendum note S/O: This is a late entry for date of service 05/15/2017. The patient was seen individually in the evening of May 15 and this note covers elements not covered in my initial note. The patient slept 4 hours last night. She is confused, wandering, quite disorganized, exit-seeking, anxious. She is talking about her son coming to pick her up. She has not been fidgeting and otherwise manipulating her colostomy bag which is an improvement, slept just 4 hours. She is confused as I met with her. She is talking about people visiting her house. Review of Systems: No CV, , Pulmonary, Eye, ENT system symptoms on review. MSE: Oriented to herself. Insight, judgment, recent and remote memory, attention, concentration, fund of knowledge are poor consistent with her diagnosis mentioned in my initial note. Plan: Increase Remeron to 15 mg h.s., trazodone 50 mg h.s. p.r.n. may repeat x1 , maintain Zoloft 50 mg a day, Risperdal 1 mg daily, Exelon patch 4.6 mg a day, adjust as indicated. Assessment: Vital Signs: Vital Signs Date Time Temp Pulse Resp B/P (MAP) Pulse Ox O2 Delivery O2 Flow Rate FiO2 05/18/17 15:31 98.2 100 20 110/72 (85) 97 05/18/17 06:08 Room Air I&O Intake and Output 05/18/17 07:00 Intake Total 780 ml Balance 780 ml Intake Oral 780 ml # Bowel Movements 1 Current Medications: Meds: Current Medications Acetaminophen (Tylenol) 650 mg PRN Q6HRS PRN PO PAIN / TEMP Last administered on 05/17/17t 05:33; Start 05/11/17 at 22:30 Multi-Ingredient Ointment (Analgesic [place]) 1 claudia PRN QID PRN TP MUSCLE PAIN; Start 05/11/17 at 22:30 Al Hydroxide/Mg Hydroxide (Mylanta Plus Xs) 15 ml PRN AFTMEALHC PRN PO DYSPEPSIA; Start 05/11/17 at 22:30 Magnesium Hydroxide (Milk Of Magnesia) 2,400 mg PRN QHS PRN PO CONSTIPATION Last administered on 05/17/17 09:06; Start 05/11/17 at 22:30 Sertraline HCl (Zoloft) 50 mg DAILY PO Last administered on 05/18/17 08:12; Start 05/12/17 at 09:00 Docusate Sodium (Colace) 100 mg PRN Q12HR PRN PO CONSTIPATION; Start 05/12/17 at 07:45; Stop 05/17/17 at 18:38; Status DC Levothyroxine Sodium (Synthroid) 50 mcg DAILY06 PO ; Start 05/13/17 at 06:00; Stop 05/13/17 at 06:00; Status DC Levothyroxine Sodium (Synthroid) 75 mcg DAILY06 PO ; Start 05/13/17 at 06:00; Stop 05/13/17 at 06:00; Status DC Risperidone (RisperDAL) 1 mg DAILY PO Last administered on 05/18/17 08:13; Start 05/12/17 at 09:00 Multivitamins/ Calcium (Thera-M Plus) 1 tab DAILY PO Last administered on 08:13; Start 05/12/17 at 09:00 Levothyroxine Sodium (Synthroid) 75 mcg DAILY06 PO Last administered on 05:10; Start 05/12/17 at 08:00 Ferrous Sulfate (Feosol) 325 mg BIDACLD PO Last administered on 05/18/17 16:50 ; Start 05/12/17 at 16:30 Rivastigmine (Exelon) 1 patch DAILY TD Last administered on 05/18/17 08:13; Start 05/13/17 at 11:00 Mirtazapine (Remeron) 7.5 mg QHS PO Last administered on 05/14/17 21:05; Start 05/13/17 at 21:00; Stop 05/15/17 at 18:38; Status DC Vitamin D (Vitamin D3) 50,000 unit WEEKLY PO Last administered on 05/13/17 17: 10; Start 05/13/17 at 14:30 Prenat Multivit/ [place]/Iron/Folic Ac (Multivitamin ) 1 tab DAILYWSUP PO Last administered on 05/18/17 16:49; Start 05/13/17 at 17:00 Mirtazapine (Remeron) 15 mg QHS PO Last administered on 05/18/17 19:30; Start 05/15/17 at 21:00 Trazodone HCl (Desyrel) 50 mg PRN QHS PRN PO INSOMNIA, MAY REPEAT X1 Last administered on 05/18/17 19:30; Start 05/15/17 at 18:45 Docusate Sodium (Colace) 100 mg BID PO Last administered on 05/18/17 19:30; Start 05/17/17 at 21:00 Active Scripts Active Reported Levothyroxine Sodium 75 Mcg Tablet 75 Mcg PO DAILYAC Levothyroxine Sodium 50 Mcg Tablet 50 Mcg PO DAILYAC Zoloft (Sertraline Hcl) 50 Mg Tablet 50 Mg PO DAILY Risperidone 1 Mg Tablet 1 Mg PO DAILY Multivitamins With Minerals (Multivitamin With Minerals) 1 Each Tablet 1 Each PO DAILY Docusate Sodium 100 Mg Capsule 100 Mg PO PRN Q12HR ALIN EWING MD May 18, 2017 20:12
--- NOTE | 2017-05-18 20:43 | PDOC ---
Exam Sonny Demential Exam: Sonny Note: Please also refer to the separate dictated note~for this date of service dictated separately.~Patient seen individually. Discussed the patient with Nursing staff reviewed the chart.~Reviewed interim history and current functioning. Reviewed vital signs,~Labs/ Radiology~and current medications noted below. Continue current treatment with the changes noted in the dictated addendum note DATE OF SERVICE: 05/16/2017. PSYCHIATRIC PROGRESS NOTE This is a late entry for Date of Service 05/16/2017. The patient seen individually on rounds the evening of 05/16/2017. Discussed with nursing staff. Reviewed the chart. The patient slept 4-1/2 hours last night. This note covers elements not covered in my initial note. Met with the patient in the evening of 05/16/2017. She remains disorganized, pleasant, confused, calm, cooperative with meds, showers, and colostomy change. She did receive trazodone last night. Hemoglobin and hematocrit is dropping, I will refer to Dr. Mason. Fecal occult blood is being checked. No CV, , pulmonary, eye, ENT systems symptoms on review. Reliability poor. MENTAL STATUS EXAM: Oriented to herself. Insight and judgment, recent and remote memory, attention and concentration, fund of knowledge poor consistent with her diagnoses mentioned in my initial note. PLAN: Continue psychotropics mentioned in my initial note. Assessment: Vital Signs: Vital Signs Date Time Temp Pulse Resp B/P (MAP) Pulse Ox O2 Delivery O2 Flow Rate FiO2 05/18/17 15:31 98.2 100 20 110/72 (85) 97 05/18/17 06:08 Room Air I&O Intake and Output 05/18/17 07:00 Intake Total 780 ml Balance 780 ml Intake Oral 780 ml # Bowel Movements 1 Current Medications: Meds: Current Medications Acetaminophen (Tylenol) 650 mg PRN Q6HRS PRN PO PAIN / TEMP Last administered on 05/17/17t 05:33; Start 05/11/17 at 22:30 Multi-Ingredient Ointment (Analgesic [place]) 1 claudia PRN QID PRN TP MUSCLE PAIN; Start 05/11/17 at 22:30 Al Hydroxide/Mg Hydroxide (Mylanta Plus Xs) 15 ml PRN AFTMEALHC PRN PO DYSPEPSIA; Start 05/11/17 at 22:30 Magnesium Hydroxide (Milk Of Magnesia) 2,400 mg PRN QHS PRN PO CONSTIPATION Last administered on 05/17/17 09:06; Start 05/11/17 at 22:30 Sertraline HCl (Zoloft) 50 mg DAILY PO Last administered on 05/18/17 08:12; Start 05/12/17 at 09:00 Docusate Sodium (Colace) 100 mg PRN Q12HR PRN PO CONSTIPATION; Start 05/12/17 at 07:45; Stop 05/17/17 at 18:38; Status DC Levothyroxine Sodium (Synthroid) 50 mcg DAILY06 PO ; Start 05/13/17 at 06:00; Stop 05/13/17 at 06:00; Status DC Levothyroxine Sodium (Synthroid) 75 mcg DAILY06 PO ; Start 05/13/17 at 06:00; Stop 05/13/17 at 06:00; Status DC Risperidone (RisperDAL) 1 mg DAILY PO Last administered on 05/18/17 08:13; Start 05/12/17 at 09:00 Multivitamins/ Calcium (Thera-M Plus) 1 tab DAILY PO Last administered on 08:13; Start 05/12/17 at 09:00 Levothyroxine Sodium (Synthroid) 75 mcg DAILY06 PO Last administered on 05:10; Start 05/12/17 at 08:00 Ferrous Sulfate (Feosol) 325 mg BIDACLD PO Last administered on 05/18/17 16:50 ; Start 05/12/17 at 16:30 Rivastigmine (Exelon) 1 patch DAILY TD Last administered on 05/18/17 08:13; Start 05/13/17 at 11:00 Mirtazapine (Remeron) 7.5 mg QHS PO Last administered on 05/14/17 21:05; Start 05/13/17 at 21:00; Stop 05/15/17 at 18:38; Status DC Vitamin D (Vitamin D3) 50,000 unit WEEKLY PO Last administered on 05/13/17 17: 10; Start 05/13/17 at 14:30 Prenat Multivit/ [place]/Iron/Folic Ac (Multivitamin ) 1 tab DAILYWSUP PO Last administered on 05/18/17 16:49; Start 05/13/17 at 17:00 Mirtazapine (Remeron) 15 mg QHS PO Last administered on 05/18/17 19:30; Start 05/15/17 at 21:00 Trazodone HCl (Desyrel) 50 mg PRN QHS PRN PO INSOMNIA, MAY REPEAT X1 Last administered on 05/18/17 19:30; Start 05/15/17 at 18:45 Docusate Sodium (Colace) 100 mg BID PO Last administered on 05/18/17 19:30; Start 05/17/17 at 21:00 Active Scripts Active Reported Levothyroxine Sodium 75 Mcg Tablet 75 Mcg PO DAILYAC Levothyroxine Sodium 50 Mcg Tablet 50 Mcg PO DAILYAC Zoloft (Sertraline Hcl) 50 Mg Tablet 50 Mg PO DAILY Risperidone 1 Mg Tablet 1 Mg PO DAILY Multivitamins With Minerals (Multivitamin With Minerals) 1 Each Tablet 1 Each PO DAILY Docusate Sodium 100 Mg Capsule 100 Mg PO PRN Q12HR ALIN EWING MD May 18, 2017 20:43
--- NOTE | 2017-05-18 21:17 | PDOC ---
Exam Sonny Demential Exam: Sonny Note: Please also refer to the separate dictated note~for this date of service dictated separately.~Patient seen individually. Discussed the patient with Nursing staff reviewed the chart.~Reviewed interim history and current functioning. Reviewed vital signs,~Labs/ Radiology~and current medications noted below. Continue current treatment with the changes noted in the dictated addendum note Assessment: Vital Signs: Vital Signs Date Time Temp Pulse Resp B/P (MAP) Pulse Ox O2 Delivery O2 Flow Rate FiO2 05/18/17 15:31 98.2 100 20 110/72 (85) 97 05/18/17 06:08 Room Air I&O Intake and Output 05/18/17 07:00 Intake Total 780 ml Balance 780 ml Intake Oral 780 ml # Bowel Movements 1 Current Medications: Meds: Current Medications Acetaminophen (Tylenol) 650 mg PRN Q6HRS PRN PO PAIN / TEMP Last administered on 05/17/17 05:33; Start 05/11/17 at 22:30 Multi-Ingredient Ointment (Analgesic [place]) 1 claudia PRN QID PRN TP MUSCLE PAIN; Start 05/11/17 at 22:30 Al Hydroxide/Mg Hydroxide (Mylanta Plus Xs) 15 ml PRN AFTMEALHC PRN PO DYSPEPSIA; Start 05/11/17 at 22:30 Magnesium Hydroxide (Milk Of Magnesia) 2,400 mg PRN QHS PRN PO CONSTIPATION Last administered on 05/17/17 09:06; Start 05/11/17 at 22:30 Sertraline HCl (Zoloft) 50 mg DAILY PO Last administered on 05/18/17 08:12; Start 05/12/17 at 09:00 Docusate Sodium (Colace) 100 mg PRN Q12HR PRN PO CONSTIPATION; Start 05/12/17 at 07:45; Stop 05/17/17 at 18:38; Status DC Levothyroxine Sodium (Synthroid) 50 mcg DAILY06 PO ; Start 05/13/17 at 06:00; Stop 05/13/17 at 06:00; Status DC Levothyroxine Sodium (Synthroid) 75 mcg DAILY06 PO ; Start 05/13/17 at 06:00; Stop 05/13/17 at 06:00; Status DC Risperidone (RisperDAL) 1 mg DAILY PO Last administered on 05/18/17 08:13; Start 05/12/17 at 09:00 Multivitamins/ Calcium (Thera-M Plus) 1 tab DAILY PO Last administered on 08:13; Start 05/12/17 at 09:00 Levothyroxine Sodium (Synthroid) 75 mcg DAILY06 PO Last administered on 05:10; Start 05/12/17 at 08:00 Ferrous Sulfate (Feosol) 325 mg BIDACLD PO Last administered on 05/18/17 16:50 ; Start 05/12/17 at 16:30 Rivastigmine (Exelon) 1 patch DAILY TD Last administered on 05/18/17 08:13; Start 05/13/17 at 11:00 Mirtazapine (Remeron) 7.5 mg QHS PO Last administered on 05/14/17 21:05; Start 05/13/17 at 21:00; Stop 05/15/17 at 18:38; Status DC Vitamin D (Vitamin D3) 50,000 unit WEEKLY PO Last administered on 05/13/17 17: 10; Start 05/13/17 at 14:30 Prenat Multivit/ [place]/Iron/Folic Ac (Multivitamin ) 1 tab DAILYWSUP PO Last administered on 05/18/17 16:49; Start 05/13/17 at 17:00 Mirtazapine (Remeron) 15 mg QHS PO Last administered on 05/18/17 19:30; Start 05/15/17 at 21:00 Trazodone HCl (Desyrel) 50 mg PRN QHS PRN PO INSOMNIA, MAY REPEAT X1 Last administered on 05/18/17 19:30; Start 05/15/17 at 18:45 Docusate Sodium (Colace) 100 mg BID PO Last administered on 05/18/17 19:30; Start 05/17/17 at 21:00 Active Scripts Active Reported Levothyroxine Sodium 75 Mcg Tablet 75 Mcg PO DAILYAC Levothyroxine Sodium 50 Mcg Tablet 50 Mcg PO DAILYAC Zoloft (Sertraline Hcl) 50 Mg Tablet 50 Mg PO DAILY Risperidone 1 Mg Tablet 1 Mg PO DAILY Multivitamins With Minerals (Multivitamin With Minerals) 1 Each Tablet 1 Each PO DAILY Docusate Sodium 100 Mg Capsule 100 Mg PO PRN Q12HR Diagnosis: Problems: (1) Anxiety disorder (2) Impulse control disorder (3) Dementia, vascular, with depression (4) Dementia, vascular, with delusions (5) Dementia in Alzheimer's disease with depression (6) Dementia in Alzheimer's disease with delusions ALIN EWING MD May 18, 2017 21:17
[2017-05-19] MEDS: LEVOTHYROXINE 75 MCG TABLET PO SCH (05:04)
[2017-05-19 05:46] VITALS: BP 139/47
[2017-05-19] MEDS: RIVASTIGMINE 4.6MG PATCH. TD SCH (07:32)
[2017-05-19] MEDS: DOCUSATE SODIUM 100 MG CAPSULE PO SCH ×2 (07:33→19:47)
[2017-05-19] MEDS: SERTRALINE 50 MG TABLET. PO SCH (07:33)
[2017-05-19] MEDS: MULTIVITAMIN with MINERAL TABLET. PO SCH (07:33)
[2017-05-19] MEDS: risperiDONE 1 MG TABLET. PO SCH (07:33)
[2017-05-19] MEDS: FERROUS SULFATE 325 MG TABLET PO SCH ×2 (12:04→17:29)
[2017-05-19 15:55] VITALS: BP 103/66
[2017-05-19] MEDS: PRENATAL MULTIVITAMIN TABLET. PO SCH (17:29)
[2017-05-19] MEDS: MIRTAZAPINE 15 MG TABLET PO SCH (19:47)
[2017-05-19] MEDS: traZODone 50 MG TABLET. PO PRN (19:48)
--- NOTE | 2017-05-19 20:08 | PDOC ---
Exam Sonny Demential Exam: Sonny Note: Please also refer to the separate dictated note~for this date of service dictated separately.~Patient seen individually. Discussed the patient with Nursing staff reviewed the chart.~Reviewed interim history and current functioning. Reviewed vital signs,~Labs/ Radiology~and current medications noted below. Continue current treatment with the changes noted in the dictated addendum note Assessment: Vital Signs: Vital Signs Date Time Temp Pulse Resp B/P (MAP) Pulse Ox O2 Delivery O2 Flow Rate FiO2 05/19/17 15:55 99.1 101 18 103/66 (78) 98 05/18/17 06:08 Room Air I&O Intake and Output 05/19/17 07:00 Intake Total 1200 ml Output Total 100 ml Balance 1100 ml Intake Oral 1200 ml Output Stool Total 100 ml Current Medications: Meds: Current Medications Acetaminophen (Tylenol) 650 mg PRN Q6HRS PRN PO PAIN / TEMP Last administered on 05/17/17 05:33; Start 05/11/17 at 22:30 Multi-Ingredient Ointment (Analgesic [place]) 1 claudia PRN QID PRN TP MUSCLE PAIN; Start 05/11/17 at 22:30 Al Hydroxide/Mg Hydroxide (Mylanta Plus Xs) 15 ml PRN AFTMEALHC PRN PO DYSPEPSIA; Start 05/11/17 at 22:30 Magnesium Hydroxide (Milk Of Magnesia) 2,400 mg PRN QHS PRN PO CONSTIPATION Last administered on 05/17/17 09:06; Start 05/11/17 at 22:30 Sertraline HCl (Zoloft) 50 mg DAILY PO Last administered on 05/19/17 07:33; Start 05/12/17 at 09:00 Docusate Sodium (Colace) 100 mg PRN Q12HR PRN PO CONSTIPATION; Start 05/12/17 at 07:45; Stop 05/17/17 at 18:38; Status DC Levothyroxine Sodium (Synthroid) 50 mcg DAILY06 PO ; Start 05/13/17 at 06:00; Stop 05/13/17 at 06:00; Status DC Levothyroxine Sodium (Synthroid) 75 mcg DAILY06 PO ; Start 05/13/17 at 06:00; Stop 05/13/17 at 06:00; Status DC Risperidone (RisperDAL) 1 mg DAILY PO Last administered on 05/19/17 07:33; Start 05/12/17 at 09:00 Multivitamins/ Calcium (Thera-M Plus) 1 tab DAILY PO Last administered on 07:33; Start 05/12/17 at 09:00 Levothyroxine Sodium (Synthroid) 75 mcg DAILY06 PO Last administered on 05:04; Start 05/12/17 at 08:00 Ferrous Sulfate (Feosol) 325 mg BIDACLD PO Last administered on 05/19/17 17:29 ; Start 05/12/17 at 16:30 Rivastigmine (Exelon) 1 patch DAILY TD Last administered on 05/19/17 07:32; Start 05/13/17 at 11:00 Mirtazapine (Remeron) 7.5 mg QHS PO Last administered on 05/14/17 21:05; Start 05/13/17 at 21:00; Stop 05/15/17 at 18:38; Status DC Vitamin D (Vitamin D3) 50,000 unit WEEKLY PO Last administered on 05/13/17 17: 10; Start 05/13/17 at 14:30 Prenat Multivit/ [employer]/Iron/Folic Ac (Multivitamin ) 1 tab DAILYWSUP PO Last administered on 05/19/17 17:29; Start 05/13/17 at 17:00 Mirtazapine (Remeron) 15 mg QHS PO Last administered on 05/19/17 19:47; Start 05/15/17 at 21:00 Trazodone HCl (Desyrel) 50 mg PRN QHS PRN PO INSOMNIA, MAY REPEAT X1 Last administered on 05/19/17 19:48; Start 05/15/17 at 18:45 Docusate Sodium (Colace) 100 mg BID PO Last administered on 05/19/17 19:47; Start 05/17/17 at 21:00 Active Scripts Active Reported Levothyroxine Sodium 75 Mcg Tablet 75 Mcg PO DAILYAC Levothyroxine Sodium 50 Mcg Tablet 50 Mcg PO DAILYAC Zoloft (Sertraline Hcl) 50 Mg Tablet 50 Mg PO DAILY Risperidone 1 Mg Tablet 1 Mg PO DAILY Multivitamins With Minerals (Multivitamin With Minerals) 1 Each Tablet 1 Each PO DAILY Docusate Sodium 100 Mg Capsule 100 Mg PO PRN Q12HR Diagnosis: Problems: (1) Anxiety disorder (2) Impulse control disorder (3) Dementia, vascular, with depression (4) Dementia, vascular, with delusions (5) Dementia in Alzheimer's disease with depression (6) Dementia in Alzheimer's disease with delusions ALIN EWING MD May 19, 2017 20:08
[2017-05-20 06:05] VITALS: BP 133/72
[2017-05-20] MEDS: LEVOTHYROXINE 75 MCG TABLET PO SCH (06:08)
[2017-05-20] MEDS: DOCUSATE SODIUM 100 MG CAPSULE PO SCH ×2 (07:56→19:59)
[2017-05-20] MEDS: MULTIVITAMIN with MINERAL TABLET. PO SCH (07:56)
[2017-05-20] MEDS: risperiDONE 1 MG TABLET. PO SCH (07:56)
[2017-05-20] MEDS: CHOLECALCIFEROL (VITAMIN D3) 50,000 UNIT CAPSULE PO SCH (07:57)
[2017-05-20] MEDS: SERTRALINE 50 MG TABLET. PO SCH (07:58)
[2017-05-20] MEDS: RIVASTIGMINE 4.6MG PATCH. TD SCH (07:58)
[2017-05-20] MEDS: FERROUS SULFATE 325 MG TABLET PO SCH ×2 (12:05→16:56)
[2017-05-20] MEDS: PRENATAL MULTIVITAMIN TABLET. PO SCH (12:05)
[2017-05-20 15:54] VITALS: BP 124/65
[2017-05-20] MEDS: MIRTAZAPINE 15 MG TABLET PO SCH (19:59)
[2017-05-20] MEDS: traZODone 50 MG TABLET. PO PRN (20:00)
--- NOTE | 2017-05-20 23:21 | PDOC ---
Exam Sonny Demential Exam: Sonny Note: Please also refer to the separate dictated note~for this date of service dictated separately.~Patient seen individually. Discussed the patient with Nursing staff reviewed the chart.~Reviewed interim history and current functioning. Reviewed vital signs,~Labs/ Radiology~and current medications noted below. Continue current treatment with the changes noted in the dictated addendum note Assessment: Vital Signs: Vital Signs Date Time Temp Pulse Resp B/P (MAP) Pulse Ox O2 Delivery O2 Flow Rate FiO2 05/20/17 15:54 99.0 100 18 124/65 (84) 94 Room Air I&O Intake and Output 05/20/17 07:00 Intake Total 1240 ml Output Total 250 ml Balance 990 ml Intake Oral 1240 ml Output Stool Total 250 ml # Voids 1 Current Medications: Meds: Current Medications Acetaminophen (Tylenol) 650 mg PRN Q6HRS PRN PO PAIN / TEMP Last administered on 05/17/17 05:33; Start 05/11/17 at 22:30 Multi-Ingredient Ointment (Analgesic [place]) 1 claudia PRN QID PRN TP MUSCLE PAIN; Start 05/11/17 at 22:30 Al Hydroxide/Mg Hydroxide (Mylanta Plus Xs) 15 ml PRN AFTMEALHC PRN PO DYSPEPSIA; Start 05/11/17 at 22:30 Magnesium Hydroxide (Milk Of Magnesia) 2,400 mg PRN QHS PRN PO CONSTIPATION Last administered on 05/17/17 09:06; Start 05/11/17 at 22:30 Sertraline HCl (Zoloft) 50 mg DAILY PO Last administered on 05/20/17 07:58; Start 05/12/17 at 09:00 Docusate Sodium (Colace) 100 mg PRN Q12HR PRN PO CONSTIPATION; Start 05/12/17 at 07:45; Stop 05/17/17 at 18:38; Status DC Levothyroxine Sodium (Synthroid) 50 mcg DAILY06 PO ; Start 05/13/17 at 06:00; Stop 05/13/17 at 06:00; Status DC Levothyroxine Sodium (Synthroid) 75 mcg DAILY06 PO ; Start 05/13/17 at 06:00; Stop 05/13/17 at 06:00; Status DC Risperidone (RisperDAL) 1 mg DAILY PO Last administered on 05/20/17 07:56; Start 05/12/17 at 09:00 Multivitamins/ Calcium (Thera-M Plus) 1 tab DAILY PO Last administered on 07:56; Start 05/12/17 at 09:00 Levothyroxine Sodium (Synthroid) 75 mcg DAILY06 PO Last administered on 06:08; Start 05/12/17 at 08:00 Ferrous Sulfate (Feosol) 325 mg BIDACLD PO Last administered on 05/20/17 12:05 ; Start 05/12/17 at 16:30 Rivastigmine (Exelon) 1 patch DAILY TD Last administered on 05/20/17 07:58; Start 05/13/17 at 11:00 Mirtazapine (Remeron) 7.5 mg QHS PO Last administered on 05/14/17 21:05; Start 05/13/17 at 21:00; Stop 05/15/17 at 18:38; Status DC Vitamin D (Vitamin D3) 50,000 unit WEEKLY PO Last administered on 05/20/17 07: 57; Start 05/13/17 at 14:30 Prenat Multivit/ [place]/Iron/Folic Ac (Multivitamin ) 1 tab DAILYWSUP PO Last administered on 05/20/17 12:05; Start 05/13/17 at 17:00 Mirtazapine (Remeron) 15 mg QHS PO Last administered on 05/20/17 19:59; Start 05/15/17 at 21:00 Trazodone HCl (Desyrel) 50 mg PRN QHS PRN PO INSOMNIA, MAY REPEAT X1 Last administered on 05/20/17 20:00; Start 05/15/17 at 18:45 Docusate Sodium (Colace) 100 mg BID PO Last administered on 05/20/17 19:59; Start 05/17/17 at 21:00 Active Scripts Active Reported Levothyroxine Sodium 75 Mcg Tablet 75 Mcg PO DAILYAC Levothyroxine Sodium 50 Mcg Tablet 50 Mcg PO DAILYAC Zoloft (Sertraline Hcl) 50 Mg Tablet 50 Mg PO DAILY Risperidone 1 Mg Tablet 1 Mg PO DAILY Multivitamins With Minerals (Multivitamin With Minerals) 1 Each Tablet 1 Each PO DAILY Docusate Sodium 100 Mg Capsule 100 Mg PO PRN Q12HR Diagnosis: Problems: (1) Psychiatric complaint (2) Anxiety disorder (3) Impulse control disorder (4) Dementia, vascular, with depression (5) Dementia, vascular, with delusions (6) Dementia in Alzheimer's disease with depression (7) Dementia in Alzheimer's disease with delusions ALIN EWING MD May 20, 2017 23:21
[2017-05-21] MEDS: LEVOTHYROXINE 75 MCG TABLET PO SCH (05:56)
[2017-05-21 06:20] VITALS: BP 131/88
[2017-05-21] MEDS: SERTRALINE 50 MG TABLET. PO SCH (07:54)
[2017-05-21] MEDS: risperiDONE 1 MG TABLET. PO SCH (07:54)
[2017-05-21] MEDS: MULTIVITAMIN with MINERAL TABLET. PO SCH (07:54)
[2017-05-21] MEDS: DOCUSATE SODIUM 100 MG CAPSULE PO SCH ×2 (07:54→19:57)
[2017-05-21] MEDS: RIVASTIGMINE 4.6MG PATCH. TD SCH (07:55)
[2017-05-21] MEDS: FERROUS SULFATE 325 MG TABLET PO SCH ×2 (11:41→17:14)
[2017-05-21 16:42] VITALS: BP 117/77
[2017-05-21] MEDS: PRENATAL MULTIVITAMIN TABLET. PO SCH (17:15)
[2017-05-21] MEDS: MIRTAZAPINE 15 MG TABLET PO SCH (19:57)
[2017-05-21] MEDS: traZODone 50 MG TABLET. PO PRN (19:57)
--- NOTE | 2017-05-21 20:17 | PDOC ---
Exam Sonny Demential Exam: Sonny Note: Please also refer to the separate dictated note~for this date of service dictated separately.~Patient seen individually. Discussed the patient with Nursing staff reviewed the chart.~Reviewed interim history and current functioning. Reviewed vital signs,~Labs/ Radiology~and current medications noted below. Continue current treatment with the changes noted in the dictated addendum note Assessment: Vital Signs: Vital Signs Date Time Temp Pulse Resp B/P (MAP) Pulse Ox O2 Delivery O2 Flow Rate FiO2 05/21/17 16:42 97.5 90 18 117/77 (90) 96 05/21/17 06:20 Room Air I&O Intake and Output 05/21/17 07:00 Intake Total 1060 ml Balance 1060 ml Intake Oral 1060 ml # Voids 1 # Bowel Movements 1 Current Medications: Meds: Current Medications Acetaminophen (Tylenol) 650 mg PRN Q6HRS PRN PO PAIN / TEMP Last administered on 05/17/17 05:33; Start 05/11/17 at 22:30 Multi-Ingredient Ointment (Analgesic [place]) 1 claudia PRN QID PRN TP MUSCLE PAIN; Start 05/11/17 at 22:30 Al Hydroxide/Mg Hydroxide (Mylanta Plus Xs) 15 ml PRN AFTMEALHC PRN PO DYSPEPSIA; Start 05/11/17 at 22:30 Magnesium Hydroxide (Milk Of Magnesia) 2,400 mg PRN QHS PRN PO CONSTIPATION Last administered on 05/17/17 09:06; Start 05/11/17 at 22:30 Sertraline HCl (Zoloft) 50 mg DAILY PO Last administered on 05/21/17 07:54; Start 05/12/17 at 09:00 Docusate Sodium (Colace) 100 mg PRN Q12HR PRN PO CONSTIPATION; Start 05/12/17 at 07:45; Stop 05/17/17 at 18:38; Status DC Levothyroxine Sodium (Synthroid) 50 mcg DAILY06 PO ; Start 05/13/17 at 06:00; Stop 05/13/17 at 06:00; Status DC Levothyroxine Sodium (Synthroid) 75 mcg DAILY06 PO ; Start 05/13/17 at 06:00; Stop 05/13/17 at 06:00; Status DC Risperidone (RisperDAL) 1 mg DAILY PO Last administered on 05/21/17 07:54; Start 05/12/17 at 09:00 Multivitamins/ Calcium (Thera-M Plus) 1 tab DAILY PO Last administered on 07:54; Start 05/12/17 at 09:00 Levothyroxine Sodium (Synthroid) 75 mcg DAILY06 PO Last administered on 05:56; Start 05/12/17 at 08:00 Ferrous Sulfate (Feosol) 325 mg BIDACLD PO Last administered on 05/21/17 17:14 ; Start 05/12/17 at 16:30 Rivastigmine (Exelon) 1 patch DAILY TD Last administered on 05/21/17 07:55; Start 05/13/17 at 11:00 Mirtazapine (Remeron) 7.5 mg QHS PO Last administered on 05/14/17 21:05; Start 05/13/17 at 21:00; Stop 05/15/17 at 18:38; Status DC Vitamin D (Vitamin D3) 50,000 unit WEEKLY PO Last administered on 05/20/17 07: 57; Start 05/13/17 at 14:30 Prenat Multivit/ [place]/Iron/Folic Ac (Multivitamin ) 1 tab DAILYWSUP PO Last administered on 05/21/17 17:15; Start 05/13/17 at 17:00 Mirtazapine (Remeron) 15 mg QHS PO Last administered on 05/21/17 19:57; Start 05/15/17 at 21:00 Trazodone HCl (Desyrel) 50 mg PRN QHS PRN PO INSOMNIA, MAY REPEAT X1 Last administered on 05/21/17 19:57; Start 05/15/17 at 18:45 Docusate Sodium (Colace) 100 mg BID PO Last administered on 05/21/17 19:57; Start 05/17/17 at 21:00 Active Scripts Active Reported Levothyroxine Sodium 75 Mcg Tablet 75 Mcg PO DAILYAC Levothyroxine Sodium 50 Mcg Tablet 50 Mcg PO DAILYAC Zoloft (Sertraline Hcl) 50 Mg Tablet 50 Mg PO DAILY Risperidone 1 Mg Tablet 1 Mg PO DAILY Multivitamins With Minerals (Multivitamin With Minerals) 1 Each Tablet 1 Each PO DAILY Docusate Sodium 100 Mg Capsule 100 Mg PO PRN Q12HR Diagnosis: Problems: (1) Psychiatric complaint (2) Anxiety disorder (3) Impulse control disorder (4) Dementia, vascular, with depression (5) Dementia, vascular, with delusions (6) Dementia in Alzheimer's disease with depression (7) Dementia in Alzheimer's disease with delusions ALIN EWING MD May 21, 2017 20:17
[2017-05-22 05:55] VITALS: BP 131/78
[2017-05-22] MEDS: LEVOTHYROXINE 75 MCG TABLET PO SCH (06:07)
[2017-05-22 07:28] LABS: BASO # 0.1 x10^3/uL (0.0-0.2); BASO % 1 % (0-3); EOS # 0.4 x10^3/uL (0.0-0.7); EOS % 7 % (0-3); HEMATOCRIT 28.1 % (36.0-47.0); HEMOGLOBIN 8.9 g/dL (12.0-15.5); LYMPH # 1.1 x10^3/uL (1.0-4.8); LYMPH % 17 % (24-48); MEAN CORPUSCULAR HEMOGLOBIN 23 pg (25-35); MEAN CORPUSCULAR HGB CONC 32 g/dL (31-37); MEAN CORPUSCULAR VOLUME 72 fL (79-100); MONO # 0.6 x10^3/uL (0.0-1.1); MONO % 10 % (0-9); NEUT % 65 % (31-73); PLATELET COUNT 282 x10^3/uL (140-400); RED BLOOD COUNT 3.89 x10^6/uL (3.50-5.40); RED CELL DISTRIBUTION WIDTH 21.2 % (11.5-14.5); WHITE BLOOD COUNT 6.1 x10^3/uL (4.0-11.0)
[2017-05-22 07:41] LABS: ALBUMIN 2.7 g/dL (3.4-5.0); ALBUMIN/GLOBULIN RATIO 0.8 (1.0-1.7); CALCIUM 8.2 mg/dL (8.5-10.1); CREATININE 0.6 mg/dL (0.6-1.0); GFR 96.2; POTASSIUM 3.2 mmol/L (3.5-5.1); TOTAL BILIRUBIN 0.3 mg/dL (0.2-1.0); TOTAL PROTEIN 6.1 g/dL (6.4-8.2)
[2017-05-22] MEDS: SERTRALINE 50 MG TABLET. PO SCH (08:13)
[2017-05-22] MEDS: risperiDONE 1 MG TABLET. PO SCH (08:13)
[2017-05-22] MEDS: DOCUSATE SODIUM 100 MG CAPSULE PO SCH ×2 (08:13→19:54)
[2017-05-22] MEDS: RIVASTIGMINE 4.6MG PATCH. TD SCH (08:13)
[2017-05-22] MEDS: MULTIVITAMIN with MINERAL TABLET. PO SCH (08:13)
[2017-05-22] MEDS: POTASSIUM CHLORIDE 20 MEQ TABLET.ER. PO SCH (11:54)
[2017-05-22] MEDS: FERROUS SULFATE 325 MG TABLET PO SCH ×2 (11:54→16:54)
[2017-05-22] MEDS: PRENATAL MULTIVITAMIN TABLET. PO SCH (11:54)
[2017-05-22 15:36] VITALS: BP 122/82
[2017-05-22] MEDS: MIRTAZAPINE 15 MG TABLET PO SCH (19:54)
[2017-05-22] MEDS: ATORVASTATIN CALCIUM 20 MG TABLET PO SCH (19:55)
--- NOTE | 2017-05-22 20:12 | PDOC ---
Exam Sonny Demential Exam: Sonny Note: Please also refer to the separate dictated note~for this date of service dictated separately.~Patient seen individually. Discussed the patient with Nursing staff reviewed the chart.~Reviewed interim history and current functioning. Reviewed vital signs,~Labs/ Radiology~and current medications noted below. Continue current treatment with the changes noted in the dictated addendum note Assessment: Vital Signs: Vital Signs Date Time Temp Pulse Resp B/P (MAP) Pulse Ox O2 Delivery O2 Flow Rate FiO2 05/22/17 15:36 98.0 97 20 122/82 (95) 96 05/21/17 06:20 Room Air I&O Intake and Output 05/22/17 07:00 Intake Total 1200 ml Balance 1200 ml Intake Oral 1200 ml Labs: Laboratory Tests Test 05/22/17 07:20 White Blood Count 6.1 x10^3/uL (4.0-11.0) Red Blood Count 3.89 x10^6/uL (3.50-5.40) Hemoglobin 8.9 g/dL (12.0-15.5) L Hematocrit 28.1 % (36.0-47.0) L Mean Corpuscular Volume 72 fL (79-100) L Mean Corpuscular Hemoglobin 23 pg (25-35) L Mean Corpuscular Hemoglobin Concent 32 g/dL (31-37) Red Cell Distribution Width 21.2 % (11.5-14.5) H Platelet Count 282 x10^3/uL (140-400) Neutrophils (%) (Auto) 65 % (31-73) Lymphocytes (%) (Auto) 17 % (24-48) L Monocytes (%) (Auto) 10 % (0-9) H Eosinophils (%) (Auto) 7 % (0-3) H Basophils (%) (Auto) 1 % (0-3) Neutrophils # (Auto) 4.0 x10^3uL (1.8-7.7) Lymphocytes # (Auto) 1.1 x10^3/uL (1.0-4.8) Monocytes # (Auto) 0.6 x10^3/uL (0.0-1.1) Eosinophils # (Auto) 0.4 x10^3/uL (0.0-0.7) Basophils # (Auto) 0.1 x10^3/uL (0.0-0.2) Sodium Level 143 mmol/L (136-145) Potassium Level 3.2 mmol/L (3.5-5.1) L Chloride Level 108 mmol/L (98-107) H Carbon Dioxide Level 29 mmol/L (21-32) Anion Gap 6 (6-14) Blood Urea Nitrogen 7 mg/dL (7-20) Creatinine 0.6 mg/dL (0.6-1.0) Estimated GFR (Cockcroft-Gault) 96.2 BUN/Creatinine Ratio 12 (6-20) Glucose Level 94 mg/dL (70-99) Calcium Level 8.2 mg/dL (8.5-10.1) L Total Bilirubin 0.3 mg/dL (0.2-1.0) Aspartate Amino Transferase (AST) 12 U/L (15-37) L Alanine Aminotransferase (ALT) 13 U/L (14-59) L Alkaline Phosphatase 74 U/L (46-116) Total Protein 6.1 g/dL (6.4-8.2) L Albumin 2.7 g/dL (3.4-5.0) L Albumin/Globulin Ratio 0.8 (1.0-1.7) L Current Medications: Meds: Current Medications Acetaminophen (Tylenol) 650 mg PRN Q6HRS PRN PO PAIN / TEMP Last administered on 05/17/17 05:33; Start 05/11/17 at 22:30 Multi-Ingredient Ointment (Analgesic [place]) 1 claudia PRN QID PRN TP MUSCLE PAIN; Start 05/11/17 at 22:30 Al Hydroxide/Mg Hydroxide (Mylanta Plus Xs) 15 ml PRN AFTMEALHC PRN PO DYSPEPSIA; Start 05/11/17 at 22:30 Magnesium Hydroxide (Milk Of Magnesia) 2,400 mg PRN QHS PRN PO CONSTIPATION Last administered on 05/17/17 09:06; Start 05/11/17 at 22:30 Sertraline HCl (Zoloft) 50 mg DAILY PO Last administered on 05/22/17 08:13; Start 05/12/17 at 09:00 Docusate Sodium (Colace) 100 mg PRN Q12HR PRN PO CONSTIPATION; Start 05/12/17 at 07:45; Stop 05/17/17 at 18:38; Status DC Levothyroxine Sodium (Synthroid) 50 mcg DAILY06 PO ; Start 05/13/17 at 06:00; Stop 05/13/17 at 06:00; Status DC Levothyroxine Sodium (Synthroid) 75 mcg DAILY06 PO ; Start 05/13/17 at 06:00; Stop 05/13/17 at 06:00; Status DC Risperidone (RisperDAL) 1 mg DAILY PO Last administered on 05/22/17 08:13; Start 05/12/17 at 09:00 Multivitamins/ Calcium (Thera-M Plus) 1 tab DAILY PO Last administered on 08:13; Start 05/12/17 at 09:00; Stop 05/22/17 at 11:42; Status DC Levothyroxine Sodium (Synthroid) 75 mcg DAILY06 PO Last administered on 06:07; Start 05/12/17 at 08:00 Ferrous Sulfate (Feosol) 325 mg BIDACLD PO Last administered on 05/22/17 16:54 ; Start 05/12/17 at 16:30 Rivastigmine (Exelon) 1 patch DAILY TD Last administered on 05/22/17 08:13; Start 05/13/17 at 11:00 Mirtazapine (Remeron) 7.5 mg QHS PO Last administered on 05/14/17 21:05; Start 05/13/17 at 21:00; Stop 05/15/17 at 18:38; Status DC Vitamin D (Vitamin D3) 50,000 unit WEEKLY PO Last administered on 05/20/17 07: 57; Start 05/13/17 at 14:30 Prenat Multivit/ [place]/Iron/Folic Ac (Multivitamin ) 1 tab DAILYWSUP PO Last administered on 05/22/17 11:54; Start 05/13/17 at 17:00 Mirtazapine (Remeron) 15 mg QHS PO Last administered on 05/22/17 19:54; Start 05/15/17 at 21:00 Trazodone HCl (Desyrel) 50 mg PRN QHS PRN PO INSOMNIA, MAY REPEAT X1 Last administered on 05/21/17 19:57; Start 05/15/17 at 18:45 Docusate Sodium (Colace) 100 mg BID PO Last administered on 05/22/17 19:54; Start 05/17/17 at 21:00 Potassium Chloride (Klor-Con) 20 meq DAILYWLUN PO Last administered on 11:54; Start 05/22/17 at 12:00 Atorvastatin Calcium (Lipitor) 20 mg QHS PO Last administered on 05/22/17 19: 55; Start 05/22/17 at 21:00 Active Scripts Active Reported Levothyroxine Sodium 75 Mcg Tablet 75 Mcg PO DAILYAC Levothyroxine Sodium 50 Mcg Tablet 50 Mcg PO DAILYAC Zoloft (Sertraline Hcl) 50 Mg Tablet 50 Mg PO DAILY Risperidone 1 Mg Tablet 1 Mg PO DAILY Multivitamins With Minerals (Multivitamin With Minerals) 1 Each Tablet 1 Each PO DAILY Docusate Sodium 100 Mg Capsule 100 Mg PO PRN Q12HR Diagnosis: Problems: (1) Anxiety disorder (2) Psychiatric complaint (3) Impulse control disorder (4) Dementia, vascular, with depression (5) Dementia, vascular, with delusions (6) Dementia in Alzheimer's disease with depression (7) Dementia in Alzheimer's disease with delusions ALIN EWING MD May 22, 2017 20:12
--- NOTE | 2017-05-22 20:57 | PDOC ---
Exam Sonny Demential Exam: Sonny Note: Please also refer to the separate dictated note~for this date of service dictated separately.~Patient seen individually. Discussed the patient with Nursing staff reviewed the chart.~Reviewed interim history and current functioning. Reviewed vital signs,~Labs/ Radiology~and current medications noted below. Continue current treatment with the changes noted in the dictated addendum note PSYCHIATRIC PROGRESS NOTE This is a late entry for Date of Service 05/17/2017. The patient seen individually. Discussed with nursing staff. Reviewed the chart evening of May 17, 2017. This note covers elements not covered in my initial of 05/17/2017. The patient slept seven hours. I met with her in the evening of 05/17/2017. She was somewhat dizzy this morning. We will check orthostatic blood pressures. Confused, pleasant, wandering, checking on exit doors, and I had to walk her back to the TV lounge from the exit door and she followed my quite nicely. No CV, , pulmonary, eye, ENT systems symptoms on review. Reliability poor. MENTAL STATUS EXAM: Oriented to herself. Insight and judgment, recent and remote memory, attention and concentration, fund of knowledge poor consistent with her diagnosis mentioned in my initial note. PLAN: Continue current psychotropics. Assessment: Vital Signs: Vital Signs Date Time Temp Pulse Resp B/P (MAP) Pulse Ox O2 Delivery O2 Flow Rate FiO2 05/22/17 15:36 98.0 97 20 122/82 (95) 96 05/21/17 06:20 Room Air I&O Intake and Output 05/22/17 07:00 Intake Total 1200 ml Balance 1200 ml Intake Oral 1200 ml Labs: Laboratory Tests Test 05/22/17 07:20 White Blood Count 6.1 x10^3/uL (4.0-11.0) Red Blood Count 3.89 x10^6/uL (3.50-5.40) Hemoglobin 8.9 g/dL (12.0-15.5) L Hematocrit 28.1 % (36.0-47.0) L Mean Corpuscular Volume 72 fL (79-100) L Mean Corpuscular Hemoglobin 23 pg (25-35) L Mean Corpuscular Hemoglobin Concent 32 g/dL (31-37) Red Cell Distribution Width 21.2 % (11.5-14.5) H Platelet Count 282 x10^3/uL (140-400) Neutrophils (%) (Auto) 65 % (31-73) Lymphocytes (%) (Auto) 17 % (24-48) L Monocytes (%) (Auto) 10 % (0-9) H Eosinophils (%) (Auto) 7 % (0-3) H Basophils (%) (Auto) 1 % (0-3) Neutrophils # (Auto) 4.0 x10^3uL (1.8-7.7) Lymphocytes # (Auto) 1.1 x10^3/uL (1.0-4.8) Monocytes # (Auto) 0.6 x10^3/uL (0.0-1.1) Eosinophils # (Auto) 0.4 x10^3/uL (0.0-0.7) Basophils # (Auto) 0.1 x10^3/uL (0.0-0.2) Sodium Level 143 mmol/L (136-145) Potassium Level 3.2 mmol/L (3.5-5.1) L Chloride Level 108 mmol/L (98-107) H Carbon Dioxide Level 29 mmol/L (21-32) Anion Gap 6 (6-14) Blood Urea Nitrogen 7 mg/dL (7-20) Creatinine 0.6 mg/dL (0.6-1.0) Estimated GFR (Cockcroft-Gault) 96.2 BUN/Creatinine Ratio 12 (6-20) Glucose Level 94 mg/dL (70-99) Calcium Level 8.2 mg/dL (8.5-10.1) L Total Bilirubin 0.3 mg/dL (0.2-1.0) Aspartate Amino Transferase (AST) 12 U/L (15-37) L Alanine Aminotransferase (ALT) 13 U/L (14-59) L Alkaline Phosphatase 74 U/L (46-116) Total Protein 6.1 g/dL (6.4-8.2) L Albumin 2.7 g/dL (3.4-5.0) L Albumin/Globulin Ratio 0.8 (1.0-1.7) L Current Medications: Meds: Current Medications Acetaminophen (Tylenol) 650 mg PRN Q6HRS PRN PO PAIN / TEMP Last administered on 05/17/17t 05:33; Start 05/11/17 at 22:30 Multi-Ingredient Ointment (Analgesic [place]) 1 claudia PRN QID PRN TP MUSCLE PAIN; Start 05/11/17 at 22:30 Al Hydroxide/Mg Hydroxide (Mylanta Plus Xs) 15 ml PRN AFTMEALHC PRN PO DYSPEPSIA; Start 05/11/17 at 22:30 Magnesium Hydroxide (Milk Of Magnesia) 2,400 mg PRN QHS PRN PO CONSTIPATION Last administered on 05/17/17 09:06; Start 05/11/17 at 22:30 Sertraline HCl (Zoloft) 50 mg DAILY PO Last administered on 05/22/17 08:13; Start 05/12/17 at 09:00 Docusate Sodium (Colace) 100 mg PRN Q12HR PRN PO CONSTIPATION; Start 05/12/17 at 07:45; Stop 05/17/17 at 18:38; Status DC Levothyroxine Sodium (Synthroid) 50 mcg DAILY06 PO ; Start 05/13/17 at 06:00; Stop 05/13/17 at 06:00; Status DC Levothyroxine Sodium (Synthroid) 75 mcg DAILY06 PO ; Start 05/13/17 at 06:00; Stop 05/13/17 at 06:00; Status DC Risperidone (RisperDAL) 1 mg DAILY PO Last administered on 05/22/17 08:13; Start 05/12/17 at 09:00 Multivitamins/ Calcium (Thera-M Plus) 1 tab DAILY PO Last administered on 08:13; Start 05/12/17 at 09:00; Stop 05/22/17 at 11:42; Status DC Levothyroxine Sodium (Synthroid) 75 mcg DAILY06 PO Last administered on 06:07; Start 05/12/17 at 08:00 Ferrous Sulfate (Feosol) 325 mg BIDACLD PO Last administered on 05/22/17 16:54 ; Start 05/12/17 at 16:30 Rivastigmine (Exelon) 1 patch DAILY TD Last administered on 05/22/17 08:13; Start 05/13/17 at 11:00 Mirtazapine (Remeron) 7.5 mg QHS PO Last administered on 05/14/17 21:05; Start 05/13/17 at 21:00; Stop 05/15/17 at 18:38; Status DC Vitamin D (Vitamin D3) 50,000 unit WEEKLY PO Last administered on 05/20/17 07: 57; Start 05/13/17 at 14:30 Prenat Multivit/ [employer]/Iron/Folic Ac (Multivitamin ) 1 tab DAILYWSUP PO Last administered on 05/22/17 11:54; Start 05/13/17 at 17:00 Mirtazapine (Remeron) 15 mg QHS PO Last administered on 05/22/17 19:54; Start 05/15/17 at 21:00 Trazodone HCl (Desyrel) 50 mg PRN QHS PRN PO INSOMNIA, MAY REPEAT X1 Last administered on 05/21/17 19:57; Start 05/15/17 at 18:45 Docusate Sodium (Colace) 100 mg BID PO Last administered on 05/22/17 19:54; Start 05/17/17 at 21:00 Potassium Chloride (Klor-Con) 20 meq DAILYWLUN PO Last administered on 11:54; Start 05/22/17 at 12:00 Atorvastatin Calcium (Lipitor) 20 mg QHS PO Last administered on 05/22/17 19: 55; Start 05/22/17 at 21:00 Active Scripts Active Reported Levothyroxine Sodium 75 Mcg Tablet 75 Mcg PO DAILYAC Levothyroxine Sodium 50 Mcg Tablet 50 Mcg PO DAILYAC Zoloft (Sertraline Hcl) 50 Mg Tablet 50 Mg PO DAILY Risperidone 1 Mg Tablet 1 Mg PO DAILY Multivitamins With Minerals (Multivitamin With Minerals) 1 Each Tablet 1 Each PO DAILY Docusate Sodium 100 Mg Capsule 100 Mg PO PRN Q12HR ALIN EWING MD May 22, 2017 20:57
[2017-05-23] MEDS: LEVOTHYROXINE 75 MCG TABLET PO SCH (05:38)
[2017-05-23 06:07] VITALS: BP 158/78
[2017-05-23] MEDS: DOCUSATE SODIUM 100 MG CAPSULE PO SCH ×2 (08:12→19:17)
[2017-05-23] MEDS: risperiDONE 1 MG TABLET. PO SCH (08:13)
[2017-05-23] MEDS: RIVASTIGMINE 4.6MG PATCH. TD SCH (08:13)
[2017-05-23] MEDS: SERTRALINE 50 MG TABLET. PO SCH (08:13)
[2017-05-23] MEDS: FERROUS SULFATE 325 MG TABLET PO SCH ×2 (12:11→16:15)
[2017-05-23] MEDS: POTASSIUM CHLORIDE 20 MEQ TABLET.ER. PO SCH (12:11)
[2017-05-23 15:59] VITALS: BP 128/79
[2017-05-23] MEDS: PRENATAL MULTIVITAMIN TABLET. PO SCH (16:15)
[2017-05-23] MEDS: ATORVASTATIN CALCIUM 20 MG TABLET PO SCH (19:16)
[2017-05-23] MEDS: MIRTAZAPINE 15 MG TABLET PO SCH (19:16)
--- NOTE | 2017-05-23 20:14 | PDOC ---
Exam Sonny Demential Exam: Sonny Note: Please also refer to the separate dictated note~for this date of service dictated separately.~Patient seen individually. Discussed the patient with Nursing staff reviewed the chart.~Reviewed interim history and current functioning. Reviewed vital signs,~Labs/ Radiology~and current medications noted below. Continue current treatment with the changes noted in the dictated addendum note Assessment: Vital Signs: Vital Signs Date Time Temp Pulse Resp B/P (MAP) Pulse Ox O2 Delivery O2 Flow Rate FiO2 05/23/17 15:59 98.8 88 16 128/79 (95) 99 Room Air I&O Intake and Output 05/23/17 07:00 Intake Total 840 ml Output Total 275 ml Balance 565 ml Intake Oral 840 ml Output Stool Total 275 ml Current Medications: Meds: Current Medications Acetaminophen (Tylenol) 650 mg PRN Q6HRS PRN PO PAIN / TEMP Last administered on 05/17/17 05:33; Start 05/11/17 at 22:30 Multi-Ingredient Ointment (Analgesic [place]) 1 claudia PRN QID PRN TP MUSCLE PAIN; Start 05/11/17 at 22:30 Al Hydroxide/Mg Hydroxide (Mylanta Plus Xs) 15 ml PRN AFTMEALHC PRN PO DYSPEPSIA; Start 05/11/17 at 22:30 Magnesium Hydroxide (Milk Of Magnesia) 2,400 mg PRN QHS PRN PO CONSTIPATION Last administered on 05/17/17 09:06; Start 05/11/17 at 22:30 Sertraline HCl (Zoloft) 50 mg DAILY PO Last administered on 05/23/17 08:13; Start 05/12/17 at 09:00 Docusate Sodium (Colace) 100 mg PRN Q12HR PRN PO CONSTIPATION; Start 05/12/17 at 07:45; Stop 05/17/17 at 18:38; Status DC Levothyroxine Sodium (Synthroid) 50 mcg DAILY06 PO ; Start 05/13/17 at 06:00; Stop 05/13/17 at 06:00; Status DC Levothyroxine Sodium (Synthroid) 75 mcg DAILY06 PO ; Start 05/13/17 at 06:00; Stop 05/13/17 at 06:00; Status DC Risperidone (RisperDAL) 1 mg DAILY PO Last administered on 05/23/17 08:13; Start 05/12/17 at 09:00 Multivitamins/ Calcium (Thera-M Plus) 1 tab DAILY PO Last administered on 08:13; Start 05/12/17 at 09:00; Stop 05/22/17 at 11:42; Status DC Levothyroxine Sodium (Synthroid) 75 mcg DAILY06 PO Last administered on 05:38; Start 05/12/17 at 08:00 Ferrous Sulfate (Feosol) 325 mg BIDACLD PO Last administered on 05/23/17 16:15 ; Start 05/12/17 at 16:30 Rivastigmine (Exelon) 1 patch DAILY TD Last administered on 05/23/17 08:13; Start 05/13/17 at 11:00 Mirtazapine (Remeron) 7.5 mg QHS PO Last administered on 05/14/17 21:05; Start 05/13/17 at 21:00; Stop 05/15/17 at 18:38; Status DC Vitamin D (Vitamin D3) 50,000 unit WEEKLY PO Last administered on 05/20/17 07: 57; Start 05/13/17 at 14:30 Prenat Multivit/ [place]/Iron/Folic Ac (Multivitamin ) 1 tab DAILYWSUP PO Last administered on 05/23/17 16:15; Start 05/13/17 at 17:00 Mirtazapine (Remeron) 15 mg QHS PO Last administered on 05/23/17 19:16; Start 05/15/17 at 21:00 Trazodone HCl (Desyrel) 50 mg PRN QHS PRN PO INSOMNIA, MAY REPEAT X1 Last administered on 05/21/17 19:57; Start 05/15/17 at 18:45 Docusate Sodium (Colace) 100 mg BID PO Last administered on 05/23/17 19:17; Start 05/17/17 at 21:00 Potassium Chloride (Klor-Con) 20 meq DAILYWLUN PO Last administered on 12:11; Start 05/22/17 at 12:00 Atorvastatin Calcium (Lipitor) 20 mg QHS PO Last administered on 05/23/17 19: 16; Start 05/22/17 at 21:00 Active Scripts Active Reported Levothyroxine Sodium 75 Mcg Tablet 75 Mcg PO DAILYAC Levothyroxine Sodium 50 Mcg Tablet 50 Mcg PO DAILYAC Zoloft (Sertraline Hcl) 50 Mg Tablet 50 Mg PO DAILY Risperidone 1 Mg Tablet 1 Mg PO DAILY Multivitamins With Minerals (Multivitamin With Minerals) 1 Each Tablet 1 Each PO DAILY Docusate Sodium 100 Mg Capsule 100 Mg PO PRN Q12HR Diagnosis: Problems: (1) Psychiatric complaint (2) Anxiety disorder (3) Impulse control disorder (4) Dementia, vascular, with depression (5) Dementia, vascular, with delusions (6) Dementia in Alzheimer's disease with depression (7) Dementia in Alzheimer's disease with delusions ALIN EWING MD May 23, 2017 20:14
--- NOTE | 2017-05-23 20:36 | PDOC ---
Exam Sonny Demential Exam: Sonny Note: Please also refer to the separate dictated note~for this date of service dictated separately.~Patient seen individually. Discussed the patient with Nursing staff reviewed the chart.~Reviewed interim history and current functioning. Reviewed vital signs,~Labs/ Radiology~and current medications noted below. Continue current treatment with the changes noted in the dictated addendum note S/O: This is a late entry for date of service 05/18/2017 and covers elements not covered in my initial note. The patient was staffed with the entire team in morning of 05/18/2017 and seen individually in evening of 05/18/2017. During the treatment team meeting, the patient's son, Blaine, attended the conference. We had a lengthy discussion about the patient's diagnosis progress and discharge plans with current medications. She remains disorganized but otherwise pleasant, cooperative, wandering, pulling less on the colostomy bag, slept 7 hours. Appetite is 75%. Attends groups but quite forgetful. Review of Systems: No CV, , Pulmonary, Eye, ENT system symptoms on review. Reliability is poor. MSE: Oriented to herself. Insight and judgment, and recent and remote memory. Attention and concentration. Fund of knowledge poor consistent with her diagnosis. Quite pleasant otherwise as I met with her evening of May 18. Labs: Reviewed. Imp: Unchanged from initial note. Plan: Continue current psychotropics mentioned in my initial note, may adjust Zoloft in due course depending on her progress. Assessment: Vital Signs: Vital Signs Date Time Temp Pulse Resp B/P (MAP) Pulse Ox O2 Delivery O2 Flow Rate FiO2 05/23/17 15:59 98.8 88 16 128/79 (95) 99 Room Air I&O Intake and Output 05/23/17 07:00 Intake Total 840 ml Output Total 275 ml Balance 565 ml Intake Oral 840 ml Output Stool Total 275 ml Current Medications: Meds: Current Medications Acetaminophen (Tylenol) 650 mg PRN Q6HRS PRN PO PAIN / TEMP Last administered on 05/17/17t 05:33; Start 05/11/17 at 22:30 Multi-Ingredient Ointment (Analgesic [place]) 1 claudia PRN QID PRN TP MUSCLE PAIN; Start 05/11/17 at 22:30 Al Hydroxide/Mg Hydroxide (Mylanta Plus Xs) 15 ml PRN AFTMEALHC PRN PO DYSPEPSIA; Start 05/11/17 at 22:30 Magnesium Hydroxide (Milk Of Magnesia) 2,400 mg PRN QHS PRN PO CONSTIPATION Last administered on 05/17/17 09:06; Start 05/11/17 at 22:30 Sertraline HCl (Zoloft) 50 mg DAILY PO Last administered on 05/23/17 08:13; Start 05/12/17 at 09:00 Docusate Sodium (Colace) 100 mg PRN Q12HR PRN PO CONSTIPATION; Start 05/12/17 at 07:45; Stop 05/17/17 at 18:38; Status DC Levothyroxine Sodium (Synthroid) 50 mcg DAILY06 PO ; Start 05/13/17 at 06:00; Stop 05/13/17 at 06:00; Status DC Levothyroxine Sodium (Synthroid) 75 mcg DAILY06 PO ; Start 05/13/17 at 06:00; Stop 05/13/17 at 06:00; Status DC Risperidone (RisperDAL) 1 mg DAILY PO Last administered on 05/23/17 08:13; Start 05/12/17 at 09:00 Multivitamins/ Calcium (Thera-M Plus) 1 tab DAILY PO Last administered on 08:13; Start 05/12/17 at 09:00; Stop 05/22/17 at 11:42; Status DC Levothyroxine Sodium (Synthroid) 75 mcg DAILY06 PO Last administered on 05:38; Start 05/12/17 at 08:00 Ferrous Sulfate (Feosol) 325 mg BIDACLD PO Last administered on 05/23/17 16:15 ; Start 05/12/17 at 16:30 Rivastigmine (Exelon) 1 patch DAILY TD Last administered on 05/23/17 08:13; Start 05/13/17 at 11:00 Mirtazapine (Remeron) 7.5 mg QHS PO Last administered on 05/14/17 21:05; Start 05/13/17 at 21:00; Stop 05/15/17 at 18:38; Status DC Vitamin D (Vitamin D3) 50,000 unit WEEKLY PO Last administered on 05/20/17 07: 57; Start 05/13/17 at 14:30 Prenat Multivit/ [place]/Iron/Folic Ac (Multivitamin ) 1 tab DAILYWSUP PO Last administered on 05/23/17 16:15; Start 05/13/17 at 17:00 Mirtazapine (Remeron) 15 mg QHS PO Last administered on 05/23/17 19:16; Start 05/15/17 at 21:00 Trazodone HCl (Desyrel) 50 mg PRN QHS PRN PO INSOMNIA, MAY REPEAT X1 Last administered on 05/21/17 19:57; Start 05/15/17 at 18:45 Docusate Sodium (Colace) 100 mg BID PO Last administered on 05/23/17 19:17; Start 05/17/17 at 21:00 Potassium Chloride (Klor-Con) 20 meq DAILYWLUN PO Last administered on 12:11; Start 05/22/17 at 12:00 Atorvastatin Calcium (Lipitor) 20 mg QHS PO Last administered on 05/23/17 19: 16; Start 05/22/17 at 21:00 Active Scripts Active Reported Levothyroxine Sodium 75 Mcg Tablet 75 Mcg PO DAILYAC Levothyroxine Sodium 50 Mcg Tablet 50 Mcg PO DAILYAC Zoloft (Sertraline Hcl) 50 Mg Tablet 50 Mg PO DAILY Risperidone 1 Mg Tablet 1 Mg PO DAILY Multivitamins With Minerals (Multivitamin With Minerals) 1 Each Tablet 1 Each PO DAILY Docusate Sodium 100 Mg Capsule 100 Mg PO PRN Q12HR ALIN EWING MD May 23, 2017 20:36
--- NOTE | 2017-05-23 21:23 | PDOC ---
Exam Sonny Demential Exam: Sonny Note: Please also refer to the separate dictated note~for this date of service dictated separately.~Patient seen individually. Discussed the patient with Nursing staff reviewed the chart.~Reviewed interim history and current functioning. Reviewed vital signs,~Labs/ Radiology~and current medications noted below. Continue current treatment with the changes noted in the dictated addendum note S/O: This is a late entry for date of service 05/19/2017. The patient was seen individually in the evening of May 19, discussed with nursing staff, and reviewed the chart. This note covers elements not covered in my initial note. Per nursing report, the patient slept 5 hours. She has been somewhat drowsy during the day, but pleasant, not combative, pulled her colostomy bag, but this is not because of the aggression, but she gets confused how to manipulate it. Review of Systems: No CV, , Pulmonary, Eye, ENT system symptoms on review. Reliability poor. MSE: Oriented to herself. Insight, judgment, recent and remote memory, attention, concentration, fund of knowledge are poor consistent with her diagnosis mentioned in my initial note. Plan: Continue psychotropics mentioned in my initial note for now. Assessment: Vital Signs: Vital Signs Date Time Temp Pulse Resp B/P (MAP) Pulse Ox O2 Delivery O2 Flow Rate FiO2 05/23/17 15:59 98.8 88 16 128/79 (95) 99 Room Air I&O Intake and Output 05/23/17 07:00 Intake Total 840 ml Output Total 275 ml Balance 565 ml Intake Oral 840 ml Output Stool Total 275 ml Current Medications: Meds: Current Medications Acetaminophen (Tylenol) 650 mg PRN Q6HRS PRN PO PAIN / TEMP Last administered on 05/17/17 05:33; Start 05/11/17 at 22:30 Multi-Ingredient Ointment (Analgesic [place]) 1 claudia PRN QID PRN TP MUSCLE PAIN; Start 05/11/17 at 22:30 Al Hydroxide/Mg Hydroxide (Mylanta Plus Xs) 15 ml PRN AFTMEALHC PRN PO DYSPEPSIA; Start 05/11/17 at 22:30 Magnesium Hydroxide (Milk Of Magnesia) 2,400 mg PRN QHS PRN PO CONSTIPATION Last administered on 05/17/17 09:06; Start 05/11/17 at 22:30 Sertraline HCl (Zoloft) 50 mg DAILY PO Last administered on 05/23/17 08:13; Start 05/12/17 at 09:00 Docusate Sodium (Colace) 100 mg PRN Q12HR PRN PO CONSTIPATION; Start 05/12/17 at 07:45; Stop 05/17/17 at 18:38; Status DC Levothyroxine Sodium (Synthroid) 50 mcg DAILY06 PO ; Start 05/13/17 at 06:00; Stop 05/13/17 at 06:00; Status DC Levothyroxine Sodium (Synthroid) 75 mcg DAILY06 PO ; Start 05/13/17 at 06:00; Stop 05/13/17 at 06:00; Status DC Risperidone (RisperDAL) 1 mg DAILY PO Last administered on 05/23/17 08:13; Start 05/12/17 at 09:00 Multivitamins/ Calcium (Thera-M Plus) 1 tab DAILY PO Last administered on 08:13; Start 05/12/17 at 09:00; Stop 05/22/17 at 11:42; Status DC Levothyroxine Sodium (Synthroid) 75 mcg DAILY06 PO Last administered on 05:38; Start 05/12/17 at 08:00 Ferrous Sulfate (Feosol) 325 mg BIDACLD PO Last administered on 05/23/17 16:15 ; Start 05/12/17 at 16:30 Rivastigmine (Exelon) 1 patch DAILY TD Last administered on 05/23/17 08:13; Start 05/13/17 at 11:00 Mirtazapine (Remeron) 7.5 mg QHS PO Last administered on 05/14/17 21:05; Start 05/13/17 at 21:00; Stop 05/15/17 at 18:38; Status DC Vitamin D (Vitamin D3) 50,000 unit WEEKLY PO Last administered on 05/20/17 07: 57; Start 05/13/17 at 14:30 Prenat Multivit/ [employer] Blanket Packer/Iron/Folic Ac (Multivitamin ) 1 tab DAILYWSUP PO Last administered on 05/23/17 16:15; Start 05/13/17 at 17:00 Mirtazapine (Remeron) 15 mg QHS PO Last administered on 05/23/17 19:16; Start 05/15/17 at 21:00 Trazodone HCl (Desyrel) 50 mg PRN QHS PRN PO INSOMNIA, MAY REPEAT X1 Last administered on 05/21/17 19:57; Start 05/15/17 at 18:45 Docusate Sodium (Colace) 100 mg BID PO Last administered on 05/23/17 19:17; Start 05/17/17 at 21:00 Potassium Chloride (Klor-Con) 20 meq DAILYWLUN PO Last administered on 12:11; Start 05/22/17 at 12:00 Atorvastatin Calcium (Lipitor) 20 mg QHS PO Last administered on 05/23/17 19: 16; Start 05/22/17 at 21:00 Active Scripts Active Reported Levothyroxine Sodium 75 Mcg Tablet 75 Mcg PO DAILYAC Levothyroxine Sodium 50 Mcg Tablet 50 Mcg PO DAILYAC Zoloft (Sertraline Hcl) 50 Mg Tablet 50 Mg PO DAILY Risperidone 1 Mg Tablet 1 Mg PO DAILY Multivitamins With Minerals (Multivitamin With Minerals) 1 Each Tablet 1 Each PO DAILY Docusate Sodium 100 Mg Capsule 100 Mg PO PRN Q12HR ALIN EWING MD May 23, 2017 21:23
[2017-05-24] MEDS: LEVOTHYROXINE 75 MCG TABLET PO SCH (05:43)
[2017-05-24 05:54] VITALS: BP 139/78
[2017-05-24] MEDS: FERROUS SULFATE 325 MG TABLET PO SCH ×2 (08:32→16:27)
[2017-05-24] MEDS: risperiDONE 1 MG TABLET. PO SCH (08:32)
[2017-05-24] MEDS: DOCUSATE SODIUM 100 MG CAPSULE PO SCH ×2 (08:32→20:04)
[2017-05-24] MEDS: SERTRALINE 50 MG TABLET. PO SCH (08:32)
[2017-05-24] MEDS: RIVASTIGMINE 4.6MG PATCH. TD SCH (08:33)
[2017-05-24] MEDS: POTASSIUM CHLORIDE 20 MEQ TABLET.ER. PO SCH (12:35)
[2017-05-24 16:10] VITALS: BP 141/89
[2017-05-24] MEDS: PRENATAL MULTIVITAMIN TABLET. PO SCH (16:27)
--- NOTE | 2017-05-24 19:53 | PDOC ---
Exam Sonny Demential Exam: Sonny Note: Please also refer to the separate dictated note~for this date of service dictated separately.~Patient seen individually. Discussed the patient with Nursing staff reviewed the chart.~Reviewed interim history and current functioning. Reviewed vital signs,~Labs/ Radiology~and current medications noted below. Continue current treatment with the changes noted in the dictated addendum note Assessment: Vital Signs: Vital Signs Date Time Temp Pulse Resp B/P (MAP) Pulse Ox O2 Delivery O2 Flow Rate FiO2 05/24/17 16:10 97.9 103 18 141/89 (106) 96 Room Air I&O Intake and Output 05/24/17 07:00 Intake Total 1320 ml Balance 1320 ml Intake Oral 1320 ml # Bowel Movements 1 Current Medications: Meds: Current Medications Acetaminophen (Tylenol) 650 mg PRN Q6HRS PRN PO PAIN / TEMP Last administered on 05/17/17 05:33; Start 05/11/17 at 22:30 Multi-Ingredient Ointment (Analgesic [place]) 1 claudia PRN QID PRN TP MUSCLE PAIN; Start 05/11/17 at 22:30 Al Hydroxide/Mg Hydroxide (Mylanta Plus Xs) 15 ml PRN AFTMEALHC PRN PO DYSPEPSIA; Start 05/11/17 at 22:30 Magnesium Hydroxide (Milk Of Magnesia) 2,400 mg PRN QHS PRN PO CONSTIPATION Last administered on 05/17/17 09:06; Start 05/11/17 at 22:30 Sertraline HCl (Zoloft) 50 mg DAILY PO Last administered on 05/24/17 08:32; Start 05/12/17 at 09:00 Docusate Sodium (Colace) 100 mg PRN Q12HR PRN PO CONSTIPATION; Start 05/12/17 at 07:45; Stop 05/17/17 at 18:38; Status DC Levothyroxine Sodium (Synthroid) 50 mcg DAILY06 PO ; Start 05/13/17 at 06:00; Stop 05/13/17 at 06:00; Status DC Levothyroxine Sodium (Synthroid) 75 mcg DAILY06 PO ; Start 05/13/17 at 06:00; Stop 05/13/17 at 06:00; Status DC Risperidone (RisperDAL) 1 mg DAILY PO Last administered on 05/24/17 08:32; Start 05/12/17 at 09:00 Multivitamins/ Calcium (Thera-M Plus) 1 tab DAILY PO Last administered on 08:13; Start 05/12/17 at 09:00; Stop 05/22/17 at 11:42; Status DC Levothyroxine Sodium (Synthroid) 75 mcg DAILY06 PO Last administered on 05:43; Start 05/12/17 at 08:00 Ferrous Sulfate (Feosol) 325 mg BIDACLD PO Last administered on 05/24/17 16:27 ; Start 05/12/17 at 16:30 Rivastigmine (Exelon) 1 patch DAILY TD Last administered on 05/24/17 08:33; Start 05/13/17 at 11:00 Mirtazapine (Remeron) 7.5 mg QHS PO Last administered on 05/14/17 21:05; Start 05/13/17 at 21:00; Stop 05/15/17 at 18:38; Status DC Vitamin D (Vitamin D3) 50,000 unit WEEKLY PO Last administered on 05/20/17 07: 57; Start 05/13/17 at 14:30 Prenat Multivit/ [employer]/Iron/Folic Ac (Multivitamin ) 1 tab DAILYWSUP PO Last administered on 05/24/17 16:27; Start 05/13/17 at 17:00 Mirtazapine (Remeron) 15 mg QHS PO Last administered on 05/23/17 19:16; Start 05/15/17 at 21:00 Trazodone HCl (Desyrel) 50 mg PRN QHS PRN PO INSOMNIA, MAY REPEAT X1 Last administered on 05/21/17 19:57; Start 05/15/17 at 18:45 Docusate Sodium (Colace) 100 mg BID PO Last administered on 05/24/17 08:32; Start 05/17/17 at 21:00 Potassium Chloride (Klor-Con) 20 meq DAILYWLUN PO Last administered on 12:35; Start 05/22/17 at 12:00 Atorvastatin Calcium (Lipitor) 20 mg QHS PO Last administered on 05/23/17 19: 16; Start 05/22/17 at 21:00 Active Scripts Active Reported Levothyroxine Sodium 75 Mcg Tablet 75 Mcg PO DAILYAC Levothyroxine Sodium 50 Mcg Tablet 50 Mcg PO DAILYAC Zoloft (Sertraline Hcl) 50 Mg Tablet 50 Mg PO DAILY Risperidone 1 Mg Tablet 1 Mg PO DAILY Multivitamins With Minerals (Multivitamin With Minerals) 1 Each Tablet 1 Each PO DAILY Docusate Sodium 100 Mg Capsule 100 Mg PO PRN Q12HR Diagnosis: Problems: (1) Anxiety disorder (2) Impulse control disorder (3) Dementia, vascular, with depression (4) Dementia, vascular, with delusions (5) Dementia in Alzheimer's disease with depression (6) Dementia in Alzheimer's disease with delusions ALIN EWING MD May 24, 2017 19:53
[2017-05-24] MEDS: MIRTAZAPINE 15 MG TABLET PO SCH (20:04)
[2017-05-24] MEDS: ATORVASTATIN CALCIUM 20 MG TABLET PO SCH (20:04)
--- NOTE | 2017-05-24 20:17 | PDOC ---
Exam Sonny Demential Exam: Sonny Note: Please also refer to the separate dictated note~for this date of service dictated separately.~Patient seen individually. Discussed the patient with Nursing staff reviewed the chart.~Reviewed interim history and current functioning. Reviewed vital signs,~Labs/ Radiology~and current medications noted below. Continue current treatment with the changes noted in the dictated addendum note S/O: This is a late entry for 05/20/2017 and covers the elements not covered in my initial note of 05/20/2017. The patient was seen individually in the evening of 05/20/2017. Per nursing report, she has been calm, cooperative, compliant, confused, wandering the hallways, redirectable. Review of Systems: No CV, , Pulmonary, Eye, ENT system symptoms on review. Reliability poor. MSE: Oriented to herself. Insight, judgment, recent and remote memory, attention, concentration, fund of knowledge are poor consistent with her diagnosis mentioned in my initial note. Plan: Continue psychotropics mentioned in my initial note. Adjust as clinically indicated. Assessment: Vital Signs: Vital Signs Date Time Temp Pulse Resp B/P (MAP) Pulse Ox O2 Delivery O2 Flow Rate FiO2 05/24/17 16:10 97.9 103 18 141/89 (106) 96 Room Air I&O Intake and Output 05/24/17 07:00 Intake Total 1320 ml Balance 1320 ml Intake Oral 1320 ml # Bowel Movements 1 Current Medications: Meds: Current Medications Acetaminophen (Tylenol) 650 mg PRN Q6HRS PRN PO PAIN / TEMP Last administered on 05/17/17 05:33; Start 05/11/17 at 22:30 Multi-Ingredient Ointment (Analgesic [place]) 1 claudia PRN QID PRN TP MUSCLE PAIN; Start 05/11/17 at 22:30 Al Hydroxide/Mg Hydroxide (Mylanta Plus Xs) 15 ml PRN AFTMEALHC PRN PO DYSPEPSIA; Start 05/11/17 at 22:30 Magnesium Hydroxide (Milk Of Magnesia) 2,400 mg PRN QHS PRN PO CONSTIPATION Last administered on 05/17/17 09:06; Start 05/11/17 at 22:30 Sertraline HCl (Zoloft) 50 mg DAILY PO Last administered on 05/24/17 08:32; Start 05/12/17 at 09:00 Docusate Sodium (Colace) 100 mg PRN Q12HR PRN PO CONSTIPATION; Start 05/12/17 at 07:45; Stop 05/17/17 at 18:38; Status DC Levothyroxine Sodium (Synthroid) 50 mcg DAILY06 PO ; Start 05/13/17 at 06:00; Stop 05/13/17 at 06:00; Status DC Levothyroxine Sodium (Synthroid) 75 mcg DAILY06 PO ; Start 05/13/17 at 06:00; Stop 05/13/17 at 06:00; Status DC Risperidone (RisperDAL) 1 mg DAILY PO Last administered on 05/24/17 08:32; Start 05/12/17 at 09:00 Multivitamins/ Calcium (Thera-M Plus) 1 tab DAILY PO Last administered on 08:13; Start 05/12/17 at 09:00; Stop 05/22/17 at 11:42; Status DC Levothyroxine Sodium (Synthroid) 75 mcg DAILY06 PO Last administered on 05:43; Start 05/12/17 at 08:00 Ferrous Sulfate (Feosol) 325 mg BIDACLD PO Last administered on 05/24/17 16:27 ; Start 05/12/17 at 16:30 Rivastigmine (Exelon) 1 patch DAILY TD Last administered on 05/24/17 08:33; Start 05/13/17 at 11:00 Mirtazapine (Remeron) 7.5 mg QHS PO Last administered on 05/14/17 21:05; Start 05/13/17 at 21:00; Stop 05/15/17 at 18:38; Status DC Vitamin D (Vitamin D3) 50,000 unit WEEKLY PO Last administered on 05/20/17 07: 57; Start 05/13/17 at 14:30 Prenat Multivit/ [place]/Iron/Folic Ac (Multivitamin ) 1 tab DAILYWSUP PO Last administered on 05/24/17 16:27; Start 05/13/17 at 17:00 Mirtazapine (Remeron) 15 mg QHS PO Last administered on 05/24/17 20:04; Start 05/15/17 at 21:00 Trazodone HCl (Desyrel) 50 mg PRN QHS PRN PO INSOMNIA, MAY REPEAT X1 Last administered on 05/21/17 19:57; Start 05/15/17 at 18:45 Docusate Sodium (Colace) 100 mg BID PO Last administered on 05/24/17 20:04; Start 05/17/17 at 21:00 Potassium Chloride (Klor-Con) 20 meq DAILYWLUN PO Last administered on 12:35; Start 05/22/17 at 12:00 Atorvastatin Calcium (Lipitor) 20 mg QHS PO Last administered on 05/24/17 20: 04; Start 05/22/17 at 21:00 Active Scripts Active Reported Levothyroxine Sodium 75 Mcg Tablet 75 Mcg PO DAILYAC Levothyroxine Sodium 50 Mcg Tablet 50 Mcg PO DAILYAC Zoloft (Sertraline Hcl) 50 Mg Tablet 50 Mg PO DAILY Risperidone 1 Mg Tablet 1 Mg PO DAILY Multivitamins With Minerals (Multivitamin With Minerals) 1 Each Tablet 1 Each PO DAILY Docusate Sodium 100 Mg Capsule 100 Mg PO PRN Q12HR ALIN EWING MD May 24, 2017 20:17
--- NOTE | 2017-05-24 20:52 | PDOC ---
Exam Sonny Demential Exam: Sonny Note: Please also refer to the separate dictated note~for this date of service dictated separately.~Patient seen individually. Discussed the patient with Nursing staff reviewed the chart.~Reviewed interim history and current functioning. Reviewed vital signs,~Labs/ Radiology~and current medications noted below. Continue current treatment with the changes noted in the dictated addendum note S/O: This is a late entry for date of service 05/21/2017 and covers the elements that are not covered in my initial note. Per nursing report, the patient is confused, calm, cooperative, and compliant. Review of Systems: No CV, , Eye, ENT, Pulmonary system symptoms on review. Reliability, poor. Met with her on the evening of 05/21/2017 and she was sitting in the patio since the weather was good as I met with her. MSE: Oriented to herself. Insight and judgment, recent and remote memory, attention, concentration, fund of knowledge, poor consistent with her diagnosis as mentioned in my initial note. Plan: Continue current psychotropics mentioned in my initial note, adjust as indicated clinically. Assessment: Vital Signs: Vital Signs Date Time Temp Pulse Resp B/P (MAP) Pulse Ox O2 Delivery O2 Flow Rate FiO2 05/24/17 16:10 97.9 103 18 141/89 (106) 96 Room Air I&O Intake and Output 05/24/17 07:00 Intake Total 1320 ml Balance 1320 ml Intake Oral 1320 ml # Bowel Movements 1 Current Medications: Meds: Current Medications Acetaminophen (Tylenol) 650 mg PRN Q6HRS PRN PO PAIN / TEMP Last administered on 05/17/17 05:33; Start 05/11/17 at 22:30 Multi-Ingredient Ointment (Analgesic [place]) 1 claudia PRN QID PRN TP MUSCLE PAIN; Start 05/11/17 at 22:30 Al Hydroxide/Mg Hydroxide (Mylanta Plus Xs) 15 ml PRN AFTMEALHC PRN PO DYSPEPSIA; Start 05/11/17 at 22:30 Magnesium Hydroxide (Milk Of Magnesia) 2,400 mg PRN QHS PRN PO CONSTIPATION Last administered on 05/17/17 09:06; Start 05/11/17 at 22:30 Sertraline HCl (Zoloft) 50 mg DAILY PO Last administered on 05/24/17 08:32; Start 05/12/17 at 09:00 Docusate Sodium (Colace) 100 mg PRN Q12HR PRN PO CONSTIPATION; Start 05/12/17 at 07:45; Stop 05/17/17 at 18:38; Status DC Levothyroxine Sodium (Synthroid) 50 mcg DAILY06 PO ; Start 05/13/17 at 06:00; Stop 05/13/17 at 06:00; Status DC Levothyroxine Sodium (Synthroid) 75 mcg DAILY06 PO ; Start 05/13/17 at 06:00; Stop 05/13/17 at 06:00; Status DC Risperidone (RisperDAL) 1 mg DAILY PO Last administered on 05/24/17 08:32; Start 05/12/17 at 09:00 Multivitamins/ Calcium (Thera-M Plus) 1 tab DAILY PO Last administered on 08:13; Start 05/12/17 at 09:00; Stop 05/22/17 at 11:42; Status DC Levothyroxine Sodium (Synthroid) 75 mcg DAILY06 PO Last administered on 05:43; Start 05/12/17 at 08:00 Ferrous Sulfate (Feosol) 325 mg BIDACLD PO Last administered on 05/24/17 16:27 ; Start 05/12/17 at 16:30 Rivastigmine (Exelon) 1 patch DAILY TD Last administered on 05/24/17 08:33; Start 05/13/17 at 11:00 Mirtazapine (Remeron) 7.5 mg QHS PO Last administered on 05/14/17 21:05; Start 05/13/17 at 21:00; Stop 05/15/17 at 18:38; Status DC Vitamin D (Vitamin D3) 50,000 unit WEEKLY PO Last administered on 05/20/17 07: 57; Start 05/13/17 at 14:30 Prenat Multivit/ [place]/Iron/Folic Ac (Multivitamin ) 1 tab DAILYWSUP PO Last administered on 05/24/17 16:27; Start 05/13/17 at 17:00 Mirtazapine (Remeron) 15 mg QHS PO Last administered on 05/24/17 20:04; Start 05/15/17 at 21:00 Trazodone HCl (Desyrel) 50 mg PRN QHS PRN PO INSOMNIA, MAY REPEAT X1 Last administered on 05/21/17 19:57; Start 05/15/17 at 18:45 Docusate Sodium (Colace) 100 mg BID PO Last administered on 05/24/17 20:04; Start 05/17/17 at 21:00 Potassium Chloride (Klor-Con) 20 meq DAILYWLUN PO Last administered on 12:35; Start 05/22/17 at 12:00 Atorvastatin Calcium (Lipitor) 20 mg QHS PO Last administered on 05/24/17 20: 04; Start 05/22/17 at 21:00 Active Scripts Active Reported Levothyroxine Sodium 75 Mcg Tablet 75 Mcg PO DAILYAC Levothyroxine Sodium 50 Mcg Tablet 50 Mcg PO DAILYAC Zoloft (Sertraline Hcl) 50 Mg Tablet 50 Mg PO DAILY Risperidone 1 Mg Tablet 1 Mg PO DAILY Multivitamins With Minerals (Multivitamin With Minerals) 1 Each Tablet 1 Each PO DAILY Docusate Sodium 100 Mg Capsule 100 Mg PO PRN Q12HR ALIN EWING MD May 24, 2017 20:52
[2017-05-25] MEDS ORDERED: PREN1TAB58 PO (00:10)
[2017-05-25] MEDS ORDERED: POTA20TA4 PO (00:10)
[2017-05-25] MEDS ORDERED: CHOL500021 PO (00:10)
[2017-05-25] MEDS ORDERED: FERR-26 PO (00:10)
[2017-05-25] MEDS ORDERED: MIRT15TA PO (00:10)
[2017-05-25] MEDS ORDERED: RIVA1PAT22 TP (00:10)
[2017-05-25] MEDS ORDERED: ACET325T9 PO (00:10)
[2017-05-25] MEDS ORDERED: MAGN2400 PO (00:10)
[2017-05-25] MEDS ORDERED: METH29OI TP (00:10)
[2017-05-25] MEDS ORDERED: MAG30ORA2 PO (00:10)
[2017-05-25] MEDS ORDERED: ATOR20TA PO (00:10)
[2017-05-25] MEDS ORDERED: TRAZ50TA15 PO (00:10)
[2017-05-25] MEDS: LEVOTHYROXINE 75 MCG TABLET PO SCH (05:45)
[2017-05-25 05:56] VITALS: BP 163/89
[2017-05-25] MEDS: RIVASTIGMINE 4.6MG PATCH. TD SCH (08:33)
[2017-05-25] MEDS: SERTRALINE 50 MG TABLET. PO SCH (08:33)
[2017-05-25] MEDS: risperiDONE 1 MG TABLET. PO SCH (08:33)
[2017-05-25] MEDS: DOCUSATE SODIUM 100 MG CAPSULE PO SCH (08:33)
--- NOTE | 2017-05-25 20:26 | PDOC ---
Exam Sonny Demential Exam: Sonny Note: Please also refer to the separate dictated note~for this date of service dictated separately.~Patient seen individually. Discussed the patient with Nursing staff reviewed the chart.~Reviewed interim history and current functioning. Reviewed vital signs,~Labs/ Radiology~and current medications noted below. Continue current treatment with the changes noted in the dictated addendum note S/O: This is a late entry for 05/22/2017 and covers elements not covered in my initial note. The patient was seen individually on the evening of 05/22/2017. Last evening she was quite intrusive, telling others to do different things, repeating things, anxious, hyperverbal. Today, she has done better, compliant with her medications. Review of Systems: No CV, , Pulmonary, Eye system symptoms on review. Reliability is poor. MSE: Oriented to herself. Insight and judgment, recent and remote memory, attention and concentration, fund of knowledge poor consistent with her diagnosis as mentioned in my initial note. Plan: Continue psychotropics mentioned in my initial note, adjust as indicated. Assessment: Vital Signs: Vital Signs Date Time Temp Pulse Resp B/P (MAP) Pulse Ox O2 Delivery O2 Flow Rate FiO2 05/25/17 05:56 97.9 79 18 163/89 (113) 95 05/24/17 16:10 Room Air I&O Intake and Output 05/25/17 07:00 Intake Total 1080 ml Output Total 225 ml Balance 855 ml Intake Oral 1080 ml Output Stool Total 225 ml # Voids 1 Current Medications: Meds: Current Medications Acetaminophen (Tylenol) 650 mg PRN Q6HRS PRN PO PAIN / TEMP Last administered on 05/17/17t 05:33; Start 05/11/17 at 22:30; Stop 05/25/17 at 11:31; Status DC Multi-Ingredient Ointment (Analgesic [place]) 1 leonardo PRN QID PRN TP MUSCLE PAIN; Start 05/11/17 at 22:30; Stop 05/25/17 at 11:31; Status DC Al Hydroxide/Mg Hydroxide (Mylanta Plus Xs) 15 ml PRN AFTMEALHC PRN PO DYSPEPSIA; Start 05/11/17 at 22:30; Stop 05/25/17 at 11:31; Status DC Magnesium Hydroxide (Milk Of Magnesia) 2,400 mg PRN QHS PRN PO CONSTIPATION Last administered on 05/17/17 09:06; Start 05/11/17 at 22:30; Stop 05/25/17 at 11:31; Status DC Sertraline HCl (Zoloft) 50 mg DAILY PO Last administered on 05/25/17 08:33; Start 05/12/17 at 09:00; Stop 05/25/17 at 11:31; Status DC Docusate Sodium (Colace) 100 mg PRN Q12HR PRN PO CONSTIPATION; Start 05/12/17 at 07:45; Stop 05/17/17 at 18:38; Status DC Levothyroxine Sodium (Synthroid) 50 mcg DAILY06 PO ; Start 05/13/17 at 06:00; Stop 05/13/17 at 06:00; Status DC Levothyroxine Sodium (Synthroid) 75 mcg DAILY06 PO ; Start 05/13/17 at 06:00; Stop 05/13/17 at 06:00; Status DC Risperidone (RisperDAL) 1 mg DAILY PO Last administered on 05/25/17 08:33; Start 05/12/17 at 09:00; Stop 05/25/17 at 11:31; Status DC Multivitamins/ Calcium (Thera-M Plus) 1 tab DAILY PO Last administered on 08:13; Start 05/12/17 at 09:00; Stop 05/22/17 at 11:42; Status DC Levothyroxine Sodium (Synthroid) 75 mcg DAILY06 PO Last administered on 05:45; Start 05/12/17 at 08:00; Stop 05/25/17 at 11:31; Status DC Ferrous Sulfate (Feosol) 325 mg BIDACLD PO Last administered on 05/24/17 16:27 ; Start 05/12/17 at 16:30; Stop 05/25/17 at 11:31; Status DC Rivastigmine (Exelon) 1 patch DAILY TD Last administered on 05/25/17 08:33; Start 05/13/17 at 11:00; Stop 05/25/17 at 11:31; Status DC Mirtazapine (Remeron) 7.5 mg QHS PO Last administered on 05/14/17 21:05; Start 05/13/17 at 21:00; Stop 05/15/17 at 18:38; Status DC Vitamin D (Vitamin D3) 50,000 unit WEEKLY PO Last administered on 05/20/17 07: 57; Start 05/13/17 at 14:30; Stop 05/25/17 at 11:31; Status DC Prenat Multivit/ [employer]/Iron/Folic Ac (Multivitamin ) 1 tab DAILYWSUP PO Last administered on 05/24/17 16:27; Start 05/13/17 at 17:00; Stop 05/25/17 at 11:31; Status DC Mirtazapine (Remeron) 15 mg QHS PO Last administered on 05/24/17 20:04; Start 05/15/17 at 21:00; Stop 05/25/17 at 11:31; Status DC Trazodone HCl (Desyrel) 50 mg PRN QHS PRN PO INSOMNIA, MAY REPEAT X1 Last administered on 05/21/17 19:57; Start 05/15/17 at 18:45; Stop 05/25/17 at 11:31; Status DC Docusate Sodium (Colace) 100 mg BID PO Last administered on 05/25/17 08:33; Start 05/17/17 at 21:00; Stop 05/25/17 at 11:31; Status DC Potassium Chloride (Klor-Con) 20 meq DAILYWLUN PO Last administered on 12:35; Start 05/22/17 at 12:00; Stop 05/25/17 at 11:31; Status DC Atorvastatin Calcium (Lipitor) 20 mg QHS PO Last administered on 05/24/17 20: 04; Start 05/22/17 at 21:00; Stop 05/25/17 at 11:31; Status DC Active Scripts Active Reported Trazodone Hcl 50 Mg Tablet 50 Mg PO PRN QHS PRN EXELON 4.6mg/24hr (Rivastigmine) 1 Each Patch.td24 1 Patch TP DAILY Vitamins ( Vits W-Ca,Fe,Fa(<1MG)) 1 Each Tablet 1 Tab PO DAILYWSUP Klor-Con M20 (Potassium Chloride) 20 Meq Tab.er.prt 20 Meq PO DAILYWLUN Remeron (Mirtazapine) 15 Mg Tablet 15 Mg PO QHS Analgesic [place] (Methyl Salicylate/Menthol) 28 Gm Oint...g. 1 Leon[place] TP PRN QID PRN Milk Of Magnesia (Magnesium Hydroxide) 2,400 Mg/10 Ml Oral.susp 2,400 Mg PO PRN QHS PRN Mag-Al Plus Xs Suspension (Mag Hydrox/Al Hydrox/Simeth) 30 Ml Oral.susp 15 Ml PO PRN AFTMEALHC PRN Ferrous Sulfate 325 Mg Tablet 325 Mg PO BIDACLD D3-50 (Cholecalciferol (Vitamin D3)) 50,000 Unit Capsule 50,000 Unit PO WEEKLY Lipitor (Atorvastatin Calcium) 20 Mg Tablet 20 Mg PO QHS Tylenol (Acetaminophen) 325 Mg Tablet 650 Mg PO PRN Q6-8HRS PRN Levothyroxine Sodium 75 Mcg Tablet 75 Mcg PO DAILY06 Zoloft (Sertraline Hcl) 50 Mg Tablet 50 Mg PO DAILY Risperidone 1 Mg Tablet 1 Mg PO DAILY Docusate Sodium 100 Mg Capsule 100 Mg PO BID ALIN EWING MD May 25, 2017 20:25
--- NOTE | 2017-05-25 20:59 | PDOC ---
Exam Sonny Demential Exam: Sonny Note: Please also refer to the separate dictated note~for this date of service dictated separately.~Patient seen individually. Discussed the patient with Nursing staff reviewed the chart.~Reviewed interim history and current functioning. Reviewed vital signs,~Labs/ Radiology~and current medications noted below. Continue current treatment with the changes noted in the dictated addendum note S/O: This is a late entry for date of service 05/23/2017 and covers elements not covered in my initial note. The patient was seen individually on the evening of 05/23/2017. She remains confused, calm, cooperative, and compliant. Review of Systems: No CV, , Pulmonary, Eye, ENT system symptoms on review. Reliability poor. MSE: Oriented to herself. Insight, judgment, recent and remote memory, attention and concentration, and fund of knowledge are poor consistent with her diagnosis mentioned in my initial note. Plan: Continue psychotropics mentioned in my initial note. Adjust as indicated. Assessment: Vital Signs: Vital Signs Date Time Temp Pulse Resp B/P (MAP) Pulse Ox O2 Delivery O2 Flow Rate FiO2 05/25/17 05:56 97.9 79 18 163/89 (113) 95 05/24/17 16:10 Room Air I&O Intake and Output 05/25/17 07:00 Intake Total 1080 ml Output Total 225 ml Balance 855 ml Intake Oral 1080 ml Output Stool Total 225 ml # Voids 1 Current Medications: Meds: Current Medications Acetaminophen (Tylenol) 650 mg PRN Q6HRS PRN PO PAIN / TEMP Last administered on 05/17/17 05:33; Start 05/11/17 at 22:30; Stop 05/25/17 at 11:31; Status DC Multi-Ingredient Ointment (Analgesic [place]) 1 leonardo PRN QID PRN TP MUSCLE PAIN; Start 05/11/17 at 22:30; Stop 05/25/17 at 11:31; Status DC Al Hydroxide/Mg Hydroxide (Mylanta Plus Xs) 15 ml PRN AFTMEALHC PRN PO DYSPEPSIA; Start 05/11/17 at 22:30; Stop 05/25/17 at 11:31; Status DC Magnesium Hydroxide (Milk Of Magnesia) 2,400 mg PRN QHS PRN PO CONSTIPATION Last administered on 05/17/17 09:06; Start 05/11/17 at 22:30; Stop 05/25/17 at 11:31; Status DC Sertraline HCl (Zoloft) 50 mg DAILY PO Last administered on 05/25/17 08:33; Start 05/12/17 at 09:00; Stop 05/25/17 at 11:31; Status DC Docusate Sodium (Colace) 100 mg PRN Q12HR PRN PO CONSTIPATION; Start 05/12/17 at 07:45; Stop 05/17/17 at 18:38; Status DC Levothyroxine Sodium (Synthroid) 50 mcg DAILY06 PO ; Start 05/13/17 at 06:00; Stop 05/13/17 at 06:00; Status DC Levothyroxine Sodium (Synthroid) 75 mcg DAILY06 PO ; Start 05/13/17 at 06:00; Stop 05/13/17 at 06:00; Status DC Risperidone (RisperDAL) 1 mg DAILY PO Last administered on 05/25/17 08:33; Start 05/12/17 at 09:00; Stop 05/25/17 at 11:31; Status DC Multivitamins/ Calcium (Thera-M Plus) 1 tab DAILY PO Last administered on 08:13; Start 05/12/17 at 09:00; Stop 05/22/17 at 11:42; Status DC Levothyroxine Sodium (Synthroid) 75 mcg DAILY06 PO Last administered on 05:45; Start 05/12/17 at 08:00; Stop 05/25/17 at 11:31; Status DC Ferrous Sulfate (Feosol) 325 mg BIDACLD PO Last administered on 05/24/17 16:27 ; Start 05/12/17 at 16:30; Stop 05/25/17 at 11:31; Status DC Rivastigmine (Exelon) 1 patch DAILY TD Last administered on 05/25/17 08:33; Start 05/13/17 at 11:00; Stop 05/25/17 at 11:31; Status DC Mirtazapine (Remeron) 7.5 mg QHS PO Last administered on 05/14/17 21:05; Start 05/13/17 at 21:00; Stop 05/15/17 at 18:38; Status DC Vitamin D (Vitamin D3) 50,000 unit WEEKLY PO Last administered on 05/20/17 07: 57; Start 05/13/17 at 14:30; Stop 05/25/17 at 11:31; Status DC Prenat Multivit/ [place]/Iron/Folic Ac (Multivitamin ) 1 tab DAILYWSUP PO Last administered on 05/24/17 16:27; Start 05/13/17 at 17:00; Stop 05/25/17 at 11:31; Status DC Mirtazapine (Remeron) 15 mg QHS PO Last administered on 05/24/17 20:04; Start 05/15/17 at 21:00; Stop 05/25/17 at 11:31; Status DC Trazodone HCl (Desyrel) 50 mg PRN QHS PRN PO INSOMNIA, MAY REPEAT X1 Last administered on 05/21/17 19:57; Start 05/15/17 at 18:45; Stop 05/25/17 at 11:31; Status DC Docusate Sodium (Colace) 100 mg BID PO Last administered on 05/25/17 08:33; Start 05/17/17 at 21:00; Stop 05/25/17 at 11:31; Status DC Potassium Chloride (Klor-Con) 20 meq DAILYWLUN PO Last administered on 12:35; Start 05/22/17 at 12:00; Stop 05/25/17 at 11:31; Status DC Atorvastatin Calcium (Lipitor) 20 mg QHS PO Last administered on 05/24/17 20: 04; Start 05/22/17 at 21:00; Stop 05/25/17 at 11:31; Status DC Active Scripts Active Reported Trazodone Hcl 50 Mg Tablet 50 Mg PO PRN QHS PRN EXELON 4.6mg/24hr (Rivastigmine) 1 Each Patch.td24 1 Patch TP DAILY Vitamins ( Vits W-Ca,Fe,Fa(<1MG)) 1 Each Tablet 1 Tab PO DAILYWSUP Klor-Con M20 (Potassium Chloride) 20 Meq Tab.er.prt 20 Meq PO DAILYWLUN Remeron (Mirtazapine) 15 Mg Tablet 15 Mg PO QHS Analgesic [place] (Methyl Salicylate/Menthol) 28 Gm Oint...g. 1 Leon[place] TP PRN QID PRN Milk Of Magnesia (Magnesium Hydroxide) 2,400 Mg/10 Ml Oral.susp 2,400 Mg PO PRN QHS PRN Mag-Al Plus Xs Suspension (Mag Hydrox/Al Hydrox/Simeth) 30 Ml Oral.susp 15 Ml PO PRN AFTMEALHC PRN Ferrous Sulfate 325 Mg Tablet 325 Mg PO BIDACLD D3-50 (Cholecalciferol (Vitamin D3)) 50,000 Unit Capsule 50,000 Unit PO WEEKLY Lipitor (Atorvastatin Calcium) 20 Mg Tablet 20 Mg PO QHS Tylenol (Acetaminophen) 325 Mg Tablet 650 Mg PO PRN Q6-8HRS PRN Levothyroxine Sodium 75 Mcg Tablet 75 Mcg PO DAILY06 Zoloft (Sertraline Hcl) 50 Mg Tablet 50 Mg PO DAILY Risperidone 1 Mg Tablet 1 Mg PO DAILY Docusate Sodium 100 Mg Capsule 100 Mg PO BID ALIN EWING MD May 25, 2017 20:59
--- NOTE | 2017-05-26 20:40 | PDOC ---
Exam Sonny Demential Exam: Sonny Note: Please also refer to the separate dictated note~for this date of service dictated separately.~Patient seen individually. Discussed the patient with Nursing staff reviewed the chart.~Reviewed interim history and current functioning. Reviewed vital signs,~Labs/ Radiology~and current medications noted below. Continue current treatment with the changes noted in the dictated addendum note S/O: This is late entry on 05/24/2017 covers element not covered in my initial note. I met with the patient on evening of 05/24/2017. The patient slept 4 hours cooperative, compliant, confused, and pulled of her colostomy bag at the prompting of another demented patient. Review of systems: No CV, , Pulmonary, Eye, ENT system symptoms on review. Reliability is poor. MSE: Oriented to herself. Insight, judgment, recent and remote memory, attention, concentration, fund of knowledge is poor, consistent with the diagnosis mentioned in my initial note. Plan: Continue current psychotropics, slept 4 hours last night. Assessment: Vital Signs: Vital Signs Date Time Temp Pulse Resp B/P (MAP) Pulse Ox O2 Delivery O2 Flow Rate FiO2 05/25/17 05:56 97.9 79 18 163/89 (113) 95 05/24/17 16:10 Room Air I&O Intake and Output 05/26/17 07:00 Intake Total 240 ml Balance 240 ml Intake Oral 240 ml Current Medications: Meds: Current Medications Acetaminophen (Tylenol) 650 mg PRN Q6HRS PRN PO PAIN / TEMP Last administered on 05/17/17 05:33; Start 05/11/17 at 22:30; Stop 05/25/17 at 11:31; Status DC Multi-Ingredient Ointment (Analgesic Leivasy) 1 leonardo PRN QID PRN TP MUSCLE PAIN; Start 05/11/17 at 22:30; Stop 05/25/17 at 11:31; Status DC Al Hydroxide/Mg Hydroxide (Mylanta Plus Xs) 15 ml PRN AFTMEALHC PRN PO DYSPEPSIA; Start 05/11/17 at 22:30; Stop 05/25/17 at 11:31; Status DC Magnesium Hydroxide (Milk Of Magnesia) 2,400 mg PRN QHS PRN PO CONSTIPATION Last administered on 05/17/17 09:06; Start 05/11/17 at 22:30; Stop 05/25/17 at 11:31; Status DC Sertraline HCl (Zoloft) 50 mg DAILY PO Last administered on 05/25/17 08:33; Start 05/12/17 at 09:00; Stop 05/25/17 at 11:31; Status DC Docusate Sodium (Colace) 100 mg PRN Q12HR PRN PO CONSTIPATION; Start 05/12/17 at 07:45; Stop 05/17/17 at 18:38; Status DC Levothyroxine Sodium (Synthroid) 50 mcg DAILY06 PO ; Start 05/13/17 at 06:00; Stop 05/13/17 at 06:00; Status DC Levothyroxine Sodium (Synthroid) 75 mcg DAILY06 PO ; Start 05/13/17 at 06:00; Stop 05/13/17 at 06:00; Status DC Risperidone (RisperDAL) 1 mg DAILY PO Last administered on 05/25/17 08:33; Start 05/12/17 at 09:00; Stop 05/25/17 at 11:31; Status DC Multivitamins/ Calcium (Thera-M Plus) 1 tab DAILY PO Last administered on 08:13; Start 05/12/17 at 09:00; Stop 05/22/17 at 11:42; Status DC Levothyroxine Sodium (Synthroid) 75 mcg DAILY06 PO Last administered on 05:45; Start 05/12/17 at 08:00; Stop 05/25/17 at 11:31; Status DC Ferrous Sulfate (Feosol) 325 mg BIDACLD PO Last administered on 05/24/17 16:27 ; Start 05/12/17 at 16:30; Stop 05/25/17 at 11:31; Status DC Rivastigmine (Exelon) 1 patch DAILY TD Last administered on 05/25/17 08:33; Start 05/13/17 at 11:00; Stop 05/25/17 at 11:31; Status DC Mirtazapine (Remeron) 7.5 mg QHS PO Last administered on 05/14/17 21:05; Start 05/13/17 at 21:00; Stop 05/15/17 at 18:38; Status DC Vitamin D (Vitamin D3) 50,000 unit WEEKLY PO Last administered on 05/20/17 07: 57; Start 05/13/17 at 14:30; Stop 05/25/17 at 11:31; Status DC Prenat Multivit/ Elbert/Iron/Folic Ac (Multivitamin ) 1 tab DAILYWSUP PO Last administered on 05/24/17 16:27; Start 05/13/17 at 17:00; Stop 05/25/17 at 11:31; Status DC Mirtazapine (Remeron) 15 mg QHS PO Last administered on 05/24/17 20:04; Start 05/15/17 at 21:00; Stop 05/25/17 at 11:31; Status DC Trazodone HCl (Desyrel) 50 mg PRN QHS PRN PO INSOMNIA, MAY REPEAT X1 Last administered on 05/21/17 19:57; Start 05/15/17 at 18:45; Stop 05/25/17 at 11:31; Status DC Docusate Sodium (Colace) 100 mg BID PO Last administered on 05/25/17 08:33; Start 05/17/17 at 21:00; Stop 05/25/17 at 11:31; Status DC Potassium Chloride (Klor-Con) 20 meq DAILYWLUN PO Last administered on 12:35; Start 05/22/17 at 12:00; Stop 05/25/17 at 11:31; Status DC Atorvastatin Calcium (Lipitor) 20 mg QHS PO Last administered on 05/24/17 20: 04; Start 05/22/17 at 21:00; Stop 05/25/17 at 11:31; Status DC Active Scripts Active Reported Trazodone Hcl 50 Mg Tablet 50 Mg PO PRN QHS PRN EXELON 4.6mg/24hr (Rivastigmine) 1 Each Patch.td24 1 Patch TP DAILY Vitamins ( Vits W-Ca,Fe,Fa(<1MG)) 1 Each Tablet 1 Tab PO DAILYWSUP Klor-Con M20 (Potassium Chloride) 20 Meq Tab.er.prt 20 Meq PO DAILYWLUN Remeron (Mirtazapine) 15 Mg Tablet 15 Mg PO QHS Analgesic Leivasy (Methyl Salicylate/Menthol) 28 Gm Oint...g. 1 Leonardo TP PRN QID PRN Milk Of Magnesia (Magnesium Hydroxide) 2,400 Mg/10 Ml Oral.susp 2,400 Mg PO PRN QHS PRN Mag-Al Plus Xs Suspension (Mag Hydrox/Al Hydrox/Simeth) 30 Ml Oral.susp 15 Ml PO PRN AFTMEALHC PRN Ferrous Sulfate 325 Mg Tablet 325 Mg PO BIDACLD D3-50 (Cholecalciferol (Vitamin D3)) 50,000 Unit Capsule 50,000 Unit PO WEEKLY Lipitor (Atorvastatin Calcium) 20 Mg Tablet 20 Mg PO QHS Tylenol (Acetaminophen) 325 Mg Tablet 650 Mg PO PRN Q6-8HRS PRN Levothyroxine Sodium 75 Mcg Tablet 75 Mcg PO DAILY06 Zoloft (Sertraline Hcl) 50 Mg Tablet 50 Mg PO DAILY Risperidone 1 Mg Tablet 1 Mg PO DAILY Docusate Sodium 100 Mg Capsule 100 Mg PO BID ALIN EWING MD May 26, 2017 20:40
--- NOTE | 2017-05-29 20:40 | PDOC3 ---
Discharge Summary Visit Information Final Diagnosis Problems Medical Problems: (1) Psychiatric complaint Status: Acute Problems: Brief Hospital Course Allergies Allergies Coded Allergies Type Severity Reaction Last Updated Verified Sulfa (Sulfonamide Antibiotics) Allergy Intermediate Unknown 05/12/17 Yes Vital Signs Vital Signs Date Time Temp Pulse Resp B/P (MAP) Pulse Ox O2 Delivery O2 Flow Rate FiO2 05/25/17 05:56 97.9 79 18 163/89 (113) 95 05/24/17 16:10 Room Air Brief Hospital Course Ms. Plunkett is a 82 old [sex] who presented with [ ] This is a late entry for 05/25/2017, covers the elements that are not covered in my initial note. Reason for Admission: Please refer to the admission history for detail. Briefly, the patient is an 82-year-old female admitted from [facility] by her primary care physician on the account of increasing confusion, restlessness, combative with staff, attempting to hit pulling Roberts tube and colostomy. The patient is quite confused, agitated, and disruptive. Significant Findings/Clinical Course Following Admission: The patient was seen daily individually by myself, followed medically by Dr. Moreno/Dr. Mason. She is quite confused, paranoid, and aggressive. Adjustments were made in her psychotropics and she seemed to respond to a combination of Zoloft, Risperdal, Exelon patch, Remeron, and trazodone p.r.n. Review of Systems: Prior to discharge on 05/25/2017, no CV, , Pulmonary, Eye , ENT system symptoms on review. MSE: Oriented to herself. Insight and judgment and recent and remote memory, attention and concentration, fund of knowledge poor consistent with her diagnosis mentioned in my initial note. Final Diagnoses: Major neurocognitive disorder, Alzheimer's vascular with depression, delusion, behavioral disturbance; anxiety disorder, unspecified; impulse control disorder, unspecified. Rest unchanged from admission. Discharge Medications: Please refer to the EMRAD. Outpatient psychiatric and medical followup at the longterm. Discharge Information Dischare Medications Current Medications Acetaminophen (Tylenol) 650 mg PRN Q6HRS PRN PO PAIN / TEMP Last administered on 05/17/17 05:33; Start 05/11/17 at 22:30; Stop 05/25/17 at 11:31; Status DC Multi-Ingredient Ointment (Analgesic Peosta) 1 leonardo PRN QID PRN TP MUSCLE PAIN; Start 05/11/17 at 22:30; Stop 05/25/17 at 11:31; Status DC Al Hydroxide/Mg Hydroxide (Mylanta Plus Xs) 15 ml PRN AFTMEALHC PRN PO DYSPEPSIA; Start 05/11/17 at 22:30; Stop 05/25/17 at 11:31; Status DC Magnesium Hydroxide (Milk Of Magnesia) 2,400 mg PRN QHS PRN PO CONSTIPATION Last administered on 05/17/17 09:06; Start 05/11/17 at 22:30; Stop 05/25/17 at 11:31; Status DC Sertraline HCl (Zoloft) 50 mg DAILY PO Last administered on 05/25/17 08:33; Start 05/12/17 at 09:00; Stop 05/25/17 at 11:31; Status DC Docusate Sodium (Colace) 100 mg PRN Q12HR PRN PO CONSTIPATION; Start 05/12/17 at 07:45; Stop 05/17/17 at 18:38; Status DC Levothyroxine Sodium (Synthroid) 50 mcg DAILY06 PO ; Start 05/13/17 at 06:00; Stop 05/13/17 at 06:00; Status DC Levothyroxine Sodium (Synthroid) 75 mcg DAILY06 PO ; Start 05/13/17 at 06:00; Stop 05/13/17 at 06:00; Status DC Risperidone (RisperDAL) 1 mg DAILY PO Last administered on 05/25/17 08:33; Start 05/12/17 at 09:00; Stop 05/25/17 at 11:31; Status DC Multivitamins/ Calcium (Thera-M Plus) 1 tab DAILY PO Last administered on 08:13; Start 05/12/17 at 09:00; Stop 05/22/17 at 11:42; Status DC Levothyroxine Sodium (Synthroid) 75 mcg DAILY06 PO Last administered on 05:45; Start 05/12/17 at 08:00; Stop 05/25/17 at 11:31; Status DC Ferrous Sulfate (Feosol) 325 mg BIDACLD PO Last administered on 05/24/17 16:27 ; Start 05/12/17 at 16:30; Stop 05/25/17 at 11:31; Status DC Rivastigmine (Exelon) 1 patch DAILY TD Last administered on 05/25/17 08:33; Start 05/13/17 at 11:00; Stop 05/25/17 at 11:31; Status DC Mirtazapine (Remeron) 7.5 mg QHS PO Last administered on 05/14/17 21:05; Start 05/13/17 at 21:00; Stop 05/15/17 at 18:38; Status DC Vitamin D (Vitamin D3) 50,000 unit WEEKLY PO Last administered on 05/20/17 07: 57; Start 05/13/17 at 14:30; Stop 05/25/17 at 11:31; Status DC Prenat Multivit/ [employer]/Iron/Folic Ac (Multivitamin ) 1 tab DAILYWSUP PO Last administered on 05/24/17 16:27; Start 05/13/17 at 17:00; Stop 05/25/17 at 11:31; Status DC Mirtazapine (Remeron) 15 mg QHS PO Last administered on 05/24/17 20:04; Start 05/15/17 at 21:00; Stop 05/25/17 at 11:31; Status DC Trazodone HCl (Desyrel) 50 mg PRN QHS PRN PO INSOMNIA, MAY REPEAT X1 Last administered on 05/21/17 19:57; Start 05/15/17 at 18:45; Stop 05/25/17 at 11:31; Status DC Docusate Sodium (Colace) 100 mg BID PO Last administered on 05/25/17 08:33; Start 05/17/17 at 21:00; Stop 05/25/17 at 11:31; Status DC Potassium Chloride (Klor-Con) 20 meq DAILYWLUN PO Last administered on 12:35; Start 05/22/17 at 12:00; Stop 05/25/17 at 11:31; Status DC Atorvastatin Calcium (Lipitor) 20 mg QHS PO Last administered on 05/24/17 20: 04; Start 05/22/17 at 21:00; Stop 05/25/17 at 11:31; Status DC Active Scripts Active Reported Trazodone Hcl 50 Mg Tablet 50 Mg PO PRN QHS PRN EXELON 4.6mg/24hr (Rivastigmine) 1 Each Patch.td24 1 Patch TP DAILY Vitamins ( Vits W-Ca,Fe,Fa(<1MG)) 1 Each Tablet 1 Tab PO DAILYWSUP Klor-Con M20 (Potassium Chloride) 20 Meq Tab.er.prt 20 Meq PO DAILYWLUN Remeron (Mirtazapine) 15 Mg Tablet 15 Mg PO QHS Analgesic Peosta (Methyl Salicylate/Menthol) 28 Gm Oint...g. 1 Leonardo TP PRN QID PRN Milk Of Magnesia (Magnesium Hydroxide) 2,400 Mg/10 Ml Oral.susp 2,400 Mg PO PRN QHS PRN Mag-Al Plus Xs Suspension (Mag Hydrox/Al Hydrox/Simeth) 30 Ml Oral.susp 15 Ml PO PRN AFTMEALHC PRN Ferrous Sulfate 325 Mg Tablet 325 Mg PO BIDACLD D3-50 (Cholecalciferol (Vitamin D3)) 50,000 Unit Capsule 50,000 Unit PO WEEKLY Lipitor (Atorvastatin Calcium) 20 Mg Tablet 20 Mg PO QHS Tylenol (Acetaminophen) 325 Mg Tablet 650 Mg PO PRN Q6-8HRS PRN Levothyroxine Sodium 75 Mcg Tablet 75 Mcg PO DAILY06 Zoloft (Sertraline Hcl) 50 Mg Tablet 50 Mg PO DAILY Risperidone 1 Mg Tablet 1 Mg PO DAILY Docusate Sodium 100 Mg Capsule 100 Mg PO BID ALIN EWING MD May 29, 2017 20:40
== END 2017-05-25 09:15 | DRG 884 ==
LOC: ER 19:09 → GEROPSY 22:18
PROVIDERS: ADMIT Psychiatry & Neurology Psychiatry; ATTEND Psychiatry & Neurology Psychiatry
DX: F01.51 Vascular dementia, unspecified severity, with behavioral disturbance (principal); F02.81 Dementia in other diseases classified elsewhere, unspecified severity, with behavioral disturbance; G30.9 Alzheimer's disease, unspecified; F22 Delusional disorders; F32.9 Major depressive disorder, single episode, unspecified; F41.9 Anxiety disorder, unspecified; I10 Essential (primary) hypertension; F63.9 Impulse disorder, unspecified; Z93.3 Colostomy status
CPT/HCPCS: 36415; 80053; 80061; 81001; 82274; 82306; 82607; 82728; 83036; 83540; 83550; 83735; 84436; 84443; 84480; 85008; 85027; 87086; 93005; 99285-25